=== PATIENT | female | born 1940 | race Caucasian/White ===

== ENCOUNTER 2025-03-26 19:59 | Observation (INO) | payer MEDICARE, SELFPAY ==
--- OUTSIDE RECORDS SUMMARY | 2020-04-17 09:10 | XMS_ITS | Continuity of Care Document ---
Author Organization [facility] Address [facility] [address] [place] [address] Phone Care Team Providers Care Cost Control Supervisor Name Role Phone Patricia Anderson MD Unavailable Unavailable Allergies, Adverse Reactions, Alerts Substance Reaction Status Criticality No Known Allergies Active No Inform ation Medications Medication Instructions Dosage Effective Dates (start - stop) Status Comments sertraline 25 mg tablet take 1 tablet by oral route every day 25 MG - Active atorvastatin 20 mg tablet take 1 tablet by oral route every day 20 MG - Active losartan 25 mg tablet take 1 tablet by o ral route every day 25 MG - Active Procedures Procedure Date Established Pt Comprehensive Exam Ophthalmoscopy; Optic Nerve Of Macula Au OCT Retina Unilateral Or Bilateral Established Pt Comprehensive Exam Subqunt Extended Ophthalmoscopy 019 Subqunt Extended Ophthalmoscopy 019 OCT Retina Unilateral Or Bilateral Established Pt Comprehensive Exam Subqunt Extended Ophthalmoscopy 018 Subqunt Extended Ophthalmoscopy 018 Fundus Photography Established Pt Comprehensive Exam Subqunt Extended Ophthalmoscopy 017 Fundus Photography New Patient Comprehensive Exam 17 Ophthalmoscopy Extended Initial 017 Ophthalmoscopy Extended Initial 017 Fluorescein Angiography Fundus Photography Advance Directives Directive Yes / No Effective Date File Name No Information Encounters Encounter Description Practice Location Reason(s) For Visit Diagnoses Date Provider Providers Copied on Encounter [facility], [facility] [id number] [place], [place], [id number], [place] tel: [phone] [facility] epi retinal membrane (chief complaint) Bilateral nonexudative age-related macular degeneration, early dry stagePuckering of macula, right eyeAge-related nuclear cataract, bilateral Apr- 7-202 0 Demsarah Gomez. [address], [place], [id number] , [place]. tel:[phone] Referring Provider: Melo Andersen [address], [place], [address] . tel:[phone] [address], [id number], [place] tel:[phone] [facility] macular degeneration (chief complaint) Bilateral nonexudative age-related macular degeneration, early dry stageBenign neoplasm of right choroidAge-rel ated nuclear cataract, bilateralPucke ring of macula, right eye 9- 9 Michaelasarah Mccurdyanne. [address], [place], [id number] , [place]. tel: [phone] Referring Provider: Melo Andersen [address], [place], [address] . tel:[phone] [facility] [address] [place] [address], [id number], [place] tel:[phone] [facility] macular degeneration (chief complaint) Puckering of macula, right eyeBilateral nonexudative age-related macular degeneration, early dry stageBenign neoplasm of right choroid Mar- 0-201 8 Michaelasarah Mccurdyanne. [address], [place], [id number] , [place]. tel:[phone] Referring Provider: Melo Andersen [address], [place], [address] . tel:[phone] [facility] [address] [place] [address], [id number], [place] tel:[phone] [facility] [place] epi retinal membrane (chief complaint) Vitreous degeneration, right eyePuckering of macula, right eyeBenign neoplasm of right choroidAge-rel ated nuclear cataract, bilateralNexdt ve age-related mclr degn, right eye, early dry stage Monica Gomez. [address], [place], [id number] , [place]. [phone] Referring Provider: David Laureano, [address], [place], [address] . tel:[phone] New Patient Comprehensive Exam [facility], [facility] [id number], [place], [id number], [place] tel:[phone] [facility] ERM (chief complaint) Puckering of macula, right eyeBenign neoplasm of right choroidVitreou s degeneration, right eyeAge-related nuclear cataract, bilateral Monica Gomez. [address], [place], [id number] , [place]. [phone] Specialist : Melo Andersen [facility] [address], [place], [address] . tel:[phone] erring Provider: Melo Andersen [facility] [address], [place], [address] . tel:[phone] Family History Family Member Type Diagnosis Age At Onset Mother Problem (finding) degenerative disorder o f macula Payers Payer name Insurance type Covered libertarian ID Authoriza tion(s) Medicare Part B MB [id number] [facility] Er PPO Supplement CI [id number] Social History Type Description Quantity Date Captured Comments Alcohol Use Details wine 1 drink daily Caffeine Use Details coffee Tobacco Use Status No Information Smoking Status Never smoker Sex Female Vital Signs Date / Time: Height Weight BMI Pulse Rate Blood Pressure Temperature Respiratory Rate Body Surface Area Head Circumference Head Circ. Percentile Wt./José Miguel. Percentile BMI percentile Pulse Ox Inhaled Ox 12:57 PM 97.80 F Chief Complaint And Reason For Visit From encounter dated '04/17/2020 13:10'. epi retinal membrane (chief complaint). Description: The 79 year old female presents for evaluationand management of epi retinal membrane in the right eye. The patient states that she doesn't think her vision has changed since her last exam. She says that she has an updated distance visioncontact lens in the left eye. No new floaters or flashes are reported today. Reason For Referral Reason For Referral No Information Plan Of Treatment Date Type Action Status Goal Tobacco cessation counseling completed Patient Education Age-Related Macular Deg eneration: Care completed Patient Education Dilated Retinal Exam: A bout This Test completed History Of Present Illness Encounter Date Complaint History Of Prese nt Illness epi retinal membrane The 79 year old female presents for evaluation and management of epi retinal membrane in the right eye. The patient states that she doesn't think her vision has changed since her last exam. She says that she has an updated distance vision contact lens in the left eye. No new floaters or flashes are reported today. macular degeneration The 78 year old female presents for evaluation of macular degeneration in the right eye and left eye. Patient states shes noticed a slight decrease in her vision about 2 months ago. She denies any flashes, floaters or distortion of vision. macular degeneration The 77 year old female presents for a one year follow up of macular degeneration in both eyes. Patient is also said to have a nevus OD and an epiretinal membrane OD. Patient states that her vision is stable from her last retina exam. Patient denies any new floaters, flashes or distortion. Patient would guess that she might need a slight change in her glasses prescription. Patient has no other complaints or questions for the doctor today. epi retinal membrane The 76 year old female presents for a six month follow up of an epi retinal membrane in the right eye. 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 Patient states that her vision is stable from her last retina exam. Patient states that her cataracts are not quite ready to come out per Dr. Gottlieb. Patient denies any new floaters or flashes. Patient has no other complaints for the doctor today. ERM The 76 year old female presents for evaluation and management of ERM in the right eye. Patient was referred from Dr. Gottlieb after a routine eye exam. Patient states she has distortion in OD,onset 4 or 5 months. Patient states she's had a lot of headaches lately. Patient denies any flashes or floaters OU today. Patient denies any pain OU today. Patient states OS is stable today. Patient doesn't have nay other complaints to discuss today. Functional Status Date Functional Assessmen t No Information Instructions Date Instruction Additional Infor mation Impression/Plan Related to Age-r elated nuclear cataract, bilateral Impression/Plan Related to Bilat eral nonexudative age-related macular degeneration, early dry stage Impression/Plan Related to Pucke ring of macula, right eye Return in 1 year wit akash Anderson MD for Dilated Exam , OCT (Macula) and Fundus Photos. Related to Puckering of macula, right eye Impression/Plan Related to Bilat eral nonexudative age-related macular degeneration, early dry stage Impression/Plan Related to Benig n neoplasm of right choroid Impression/Plan Related to Age-r elated nuclear cataract, bilateral Impression/Plan Related to Pucke ring of macula, right eye Return in 1 year wit akash Anderson MD for Dilated Exam , OCT (Macula) , Fundus Photos. choroidal nevus od too Related to Puckering of macula, right eye Impression/Plan - Di scussed and compared today's from previous visit . Stable. Flat . NO Change compared to last year. Reassured appears stable. Rediscussed will monitor closely for Malignant Melanoma. Discussed if changes, will suggest to be evaluated by a tumor specialist. Will monitor closely. Call if VA worsens Related to Benign neoplasm of right choroid Follow up - Return i n 1 year with Patricia Anderson MD for Dilated Exam , OCT (Macula) , Fundus Photos. choroidal nevus od too She is followed by Dr Gottlieb. Related to Puckering of macula, right eye Impression/Plan - ER M w/ mild pucker OD. Stable. Discussed if worsens, will consider surgical intervention. Not recommended at this current time. Will continue to observe condition and or symptoms. Call if VA worsens. ASRS patient education pamphlet given. Related to Puckering of macula, right eye Impression/Plan - Re viewed and discussed today's OCT and exam findings.Drusen and pigment changes.Discussed EARLY DRY AMD. Encouraged AREDS 2 and weekly monitoring of the Amsler Grid. Encouraged UV protection. Call VA if notes any changes in vision, or grid changes, due to the risk of DRY AMD changing to WET AMD. Call VA if changes. Will continue to monitor closely. Related to Bilateral nonexudative age-related macular degeneration, early dry stage Return in 1 year wit h Patricia Anderson MD for follow up exam , Fundus Photos , OCT (Macula). Related to Nexdtve age-related mclr degn, right eye, early dry stage Impression/Plan - No treatment is required at this time. Reassured patient of current condition and treatment. Will continue to observe condition and or symptoms. Discussed signs and symptoms of retinal detachment. Discussed signs and symptoms of PVD/floaters. Call if VA worsens. Use of Amsler grid was explained. Related to Vitreous degeneration, right eye Follow up - Return i n 1 year with Patricia Anderson MD for follow up exam , Fundus Photos , OCT (Macula). Related to Nexdtve age-related mclr degn, right eye, early dry stage Impression/Plan - Th ere are no contraindications, from a retina standpoint, why patient cannot move forward with cataract extraction when she and Dr Laureano choose to proceed. Related to Age-related nuclear cataract, bilateral Impression/Plan - No treatment is required at this time. Reassured patient of current condition and treatment. Use of vitamins has shown to improve the effects of ARMD. Call if VA worsens. Related to Nexdtve age-related mclr degn, right eye, early dry stage Impression/Plan - No treatment required at the present time. Patient will call with any questions or concerns. 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 Patient will monitor vision as well as Amsler grid and will call with any noticed changes. Related to Puckering of macula, right eye Return in 6 months w ith Patricia Anderson MD for follow up exam , OCT (Macula). Related to Puckering of macula, right eye Impression/Plan - Ne vus is 1 disc area in size. No treatment required at the present time. Patient will monitor vision and call with any changes. 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 No tears or breaks noted on exam today. Patient willmonitor vision for any onset of flashes, floaters, veils or curtains. She will call promptly with any noticed change. Related to Vitreous degeneration, right eye Follow up - Return i n 6 months with Patricia Anderson MD for follow up exam , OCT (Macula). Related to Puckering of macula, right eye Impression/Plan - Th e risks and benefits of TPPV, MBX, AFX were discussed and understood by patient. Discussed the worsening of the cataract after retinal surgery is performed. Patient should have her catartact removed prior to retinal surgery to allow the retina surgeon the best view into the posterior pole. She will monitor vision and Amsler grid at home. She will call with any noticed changes. Related to Puckering of macula, right eye Impression/Plan - Pa tient should have CE with Dr Gottlieb prior to any retinal surgery in the right eye. She will monitor and call with any changes. Related to Age-related nuclear cataract, bilateral Assessments Type Assessment Date assessment Bilateral nonexudati ve age-related macular degeneration, early dry stage assessment Puckering of macula, right eye A impression Bilateral nonexudati ve age-related macular degeneration, early dry stage: H35.3131 OU impression Puckering of macula, right eye: H35.371 OD assessment Age-related nuclear cataract, bi lateral impression Age-related nuclear cataract, bi lateral: H25.13 OU Patient Care Teams Name Effective Dates (start - stop) Status Members No Information
--- OUTSIDE RECORDS SUMMARY | 2025-02-15 08:55 | XMS_ITS | Continuity of Care Document ---
Author Organization [facility] Address [address] [address] [place] [address] Phone Care Team Providers Care Competitive Shopper Name Role Phone Alden Lopez M.D. Unavailable Unavailable Allergies, Adverse Reactions, Alerts Substance Reaction Status Criticality No Known Allergies Active No Inform ation Medications Medication Instructions Dosage Effective Dates (start - stop) Status Comments Tylenol Extra Strength 500 mg tablet take 2 tablet by oral route every 8 hours as needed - Active LOSARTAN POTASSIUM (unknown strength) Not Available - Active ATORVASTATIN CALCIUM (unknown strength) Not Available - Active SERTRALINE HCL (unknown strength) Not Available - Active Procedures Procedure Date POSTOP FOLLOW-UP VISIT X-RAY EXAM OF KNEE POSTOP FOLLOW-UP VISIT COMPUTER ASSIST SRGRY DARREN CT/MRI IMAG TOTAL KNEE REPLACEMENT THERAPEUTIC EXERCISES OV DETAILED, EST OV EXPANDED, EST X-RAY EXAM OF KNEE DRAIN/INJ JOINT/BURSA W/O US CELESTONE 12MG OFFICE/OUTPATIENT VISIT EST OV COMPREHENSIVE, NEW X-RAY Hip Unilateral W/pelvis 2-3 Views DRAIN/INJ JOINT/BURSA W/O US CELESTONE 6MG Advance Directives Directive Yes / No Effective Date File Name No Information Encounters Encounter Description Practice Location Reason(s) For Visit Diagnoses Date Provider Providers Copied on Encounter [facility] [address] [address], [place], [place], [id number], tel:[phone] JO Tong No Information John Patel [address] [facility] [facility] [address], [place], [place], [id number], . tel:[phone] [facility] [address] [address], [place], [place], [address], tel:[phone] JO Tong No Information John Patel [address] [place] [address], [facility] [address], [place], [place], [id number], . tel:[phone] Referring Provider: Alden Lopez, [address] [place] [address] [address], [place], [address]. tel:[phone] [facility] [address] [address], [place], [place], [address], tel:[phone] JO Tong No Information John Patel [facility] [facility] [address], [place], [address], . tel:[phone] Referring Provider: Alden Lopez, [address] [place] [address] [address], [place], [address]. tel:[phone] [facility] [address] [address], [place], [place], [id number], tel:[phone] JO Ran No Information John Patel [address] [place] [address], [facility] [address], [place], [id number], . tel:[phone] [facility] [address] [address], [place], [place], [address], tel:[phone] JO Ran Unilateral primary osteoarthriti s, left knee John Arshad. [address] [facility], [address], [place], [place], [address], [place]. tel:[phone] Referring Provider: Alden Lopez, [address] [facility] [address], [place], [address]. tel:[phone] [facility], [address] [address], [place], [place], [address], [place] tel:[phone] [facility] Kwaku Juan Antonio. [address] [facility], [address], [place], [place], [address]. tel:[phone] Referring Provider: Alden Lopez, [facility] [facility] [address], [place], [address]. tel:[phone] OV DETAILED, [facility], [address] [address], [place], [place], [id number], [place] tel:[phone] [facility] No Information John Patel [address] [facility], [address], [place], [place], [address], [place]. tel:[phone] Referring Provider: Alden Lopez, [address] [facility] [address], [place], [address]. tel:[phone] OV EXPANDED, EST [facility], [address] [address], [place], [place], [id number], [place] tel:[phone] [facility] No Information John Patel [address] [facility], [address], [place], [place], [address], [place]. tel:[phone] Referring Provider: Collin Loya, [address], [place], [address]. tel:[phone] OFFICE/OUTPATI ENT VISIT [facility], [address] [address], [place], [address], [place] tel:[phone] [facility] No Information John Patel [address] [facility], [address], [place], [place], [address], [place]. tel:[phone] Referring Provider: Alden Jeancarlos Lopez, [address] [facility] [address], [place], [address]. tel:[phone] [facility], [address] [address], [place], [place], [address], [place] tel:[phone] [facility] No Information John ArshadManuela [address] [facility], [address], [place], [place], [address], [place]. tel:[phone] Referring Provider: Collin Loya, [address], [place], [address]. tel:[phone] Family History Family Member Type Diagnosis Age At Onset No Information Payers Payer name Insurance type Covered alliance party ID Authoriza tion(s) [employer] Choice O Medicare [id number] Social History Type Description Quantity Date Captured Comments Sex Female Smoking Status No Information Chief Complaint And Reason For Visit No Information Reason For Referral Reason For Referral No Information History Of Present Illness Encounter Date Complaint History Of Prese nt Illness No Information Functional Status Date Functional Assessmen t No Information Instructions Date Instruction Additional Infor mation No Information Assessments Type Assessment Date No Information Patient Care Teams Name Effective Dates (start - stop) Status Members No Information
[2025-03-26] VITALS (10 sets, daily range): BP systolic 116–132; BP diastolic 45–67; PULSE 69–76; RESP 15–20; TEMP 36.4–36.6; O2SAT 93–97; BMI 24.3; BMI 24.7
--- NOTE | 2025-03-26 19:59 | CT_ITS ---
PROCEDURE INFORMATION: Exam: CT Thoracic Spine Without Contrast Exam date and time: 03/26/2025 8:44 PM Age: 84 years old Clinical indication: Injury or trauma; Fall; Additional info: Fall, pain TECHNIQUE: Imaging protocol: Computed tomography of the thoracic spine without contrast. Radiation optimization: All CT scans at this facility use at least one of these dose optimization techniques: automated exposure control; mA and/or kV adjustment per patient size (includes targeted exams where dose is matched to clinical indication); or iterative reconstruction. COMPARISON: CT THORACIC SPINE WO CON 03/26/2025 8:44 PM FINDINGS: Bones/joints: No acute fracture. Normal alignment. Multilevel degenerative disc and joint space changes. Vertebral body heights grossly preserved. Osteopenia. Soft tissues: Unremarkable. IMPRESSION: No acute thoracic spine findings identified.
--- NOTE | 2025-03-26 19:59 | CT_ITS ---
PROCEDURE INFORMATION: Exam: CT Cervical Spine Without Contrast Exam date and time: 03/26/2025 8:41 PM Age: 84 years old Clinical indication: Injury or trauma; Other: Fall, pain in RT hip TECHNIQUE: Imaging protocol: Computed tomography of the cervical spine without contrast. Radiation optimization: All CT scans at this facility use at least one of these dose optimization techniques: automated exposure control; mA and/or kV adjustment per patient size (includes targeted exams where dose is matched to clinical indication); or iterative reconstruction. COMPARISON: CT CERVICAL SPINE WO CON 03/26/2025 8:41 PM FINDINGS: Bones: No evident fracture. Degenerative changes of the C-spine most pronounced at C3-C4 through C6-C7. Otherwise unremarkable CT of the C-spine. Alignment and vertebral body heights are intact. Lungs: Bandlike nodular appearing density noted extending along the superomedial right upper lobe with associated calcifications. Largest nodular component measures 13 mm. Thyroid: Thyroid nodules noted largest measuring 24 mm in the right lobe and 19 mm in the left lobe. Advise further assessment with nonemergent ultrasound of thyroid. Soft tissues: Unremarkable. IMPRESSION: 1. Degenerative changes. No acute abnormality. 2. Opacity superomedial right upper lobe with bandlike and nodular components. The largest nodular portion measures up to 13 mm. I suspect this is scarring although developing nodule or mass not absolutely excluded. Advise further assessment with nonemergent chest CT with contrast. 3. Thyroid nodules noted largest measuring 24 mm in the right lobe and 19 mm in the left lobe. Advise further assessment with nonemergent ultrasound of thyroid. COMMENTS: Consistent with the [employer]'s Incidental Findings Committee white paper (J Am Pedrito Radiol 2015): In patients aged 35 years and older with an incidental thyroid nodule equal to or greater than 1.[address], MRI or extrathyroidal US, further evaluation with dedicated thyroid US is recommended for patients with normal life expectancy and without comorbidities. For smaller nodules without suspicious features, no further evaluation or follow up is recommended.
--- NOTE | 2025-03-26 19:59 | CT_ITS ---
PROCEDURE INFORMATION: Exam: CT Head Without Contrast Exam date and time: 03/26/2025 8:28 PM Age: 84 years old Clinical indication: Injury or trauma; Other: Fall, pain in RT hip TECHNIQUE: Imaging protocol: Computed tomography of the head without contrast. Radiation optimization: All CT scans at this facility use at least one of these dose optimization techniques: automated exposure control; mA and/or kV adjustment per patient size (includes targeted exams where dose is matched to clinical indication); or iterative reconstruction. COMPARISON: CT HEAD/BRAIN WO CON 03/26/2025 8:28 PM FINDINGS: Brain: No intracranial hemorrhage. Generalized atrophic changes of the ventricles and subarachnoid spaces. Chronic small-vessel ischemic changes noted. No mass, mass effect or midline shift. Intracranial atherosclerotic changes are noted. Cerebral ventricles: See Brain finding. Paranasal sinuses: Visualized sinuses are unremarkable. No fluid levels. Mastoid air cells: Visualized mastoid air cells are well aerated. Bones: Unremarkable. No acute fracture. Soft tissues: Unremarkable. IMPRESSION: No acute intracranial abnormality. Chronic changes as above.
--- NOTE | 2025-03-26 19:59 | CT_ITS ---
PROCEDURE INFORMATION: Exam: CT Pelvis Without Contrast, Skeleton Exam date and time: 03/26/2025 8:48 PM Age: 84 years old Clinical indication: Injury or trauma; Other: Fall, pain in RT hip TECHNIQUE: Imaging protocol: Computed tomography of the pelvis without contrast. Exam focused on the skeleton. Radiation optimization: All CT scans at this facility use at least one of these dose optimization techniques: automated exposure control; mA and/or kV adjustment per patient size (includes targeted exams where dose is matched to clinical indication); or iterative reconstruction. COMPARISON: CT LUMBAR SPINE WO CON 03/26/2025 8:46 PM FINDINGS: Intestine: Sigmoid colonic diverticula without pericolonic fat stranding. Atherosclerotic calcification of aortoiliac arteries. Nonobstructive pattern. Urinary bladder: Grossly unremarkable and intact. Bones/joints: Displaced, comminuted, right superior pubic ramus fracture. No diastasis. Mildly displaced, comminuted right mid inferior pubic ramus fracture. Soft tissues: Poorly defined fat stranding and fluid collection surrounding pubic rami fractures. IMPRESSION: 1. Right pubic rami fractures without diastasis. 2. Poorly defined hematoma collection surrounding pubic rami fractures. No definite urinary bladder injury identified.
--- NOTE | 2025-03-26 19:59 | CT_ITS ---
PROCEDURE INFORMATION: Exam: CT Lumbar Spine Without Contrast Exam date and time: 03/26/2025 8:46 PM Age: 84 years old Clinical indication: Injury or trauma; Fall; Additional info: Fall, pain TECHNIQUE: Imaging protocol: Computed tomography of the lumbar spine without contrast. Radiation optimization: All CT scans at this facility use at least one of these dose optimization techniques: automated exposure control; mA and/or kV adjustment per patient size (includes targeted exams where dose is matched to clinical indication); or iterative reconstruction. COMPARISON: CT THORACIC SPINE WO CON 03/26/2025 8:44 PM FINDINGS: Bones/joints: No acute fracture. Chronic L2 on L3 retrolisthesis. Chronic L4 on L5 anterolisthesis. Multilevel degenerative disc and joint space changes. Vertebral body heights grossly preserved. Osteopenia. Soft tissues: Unremarkable. IMPRESSION: No acute lumbar spine findings identified.
--- NOTE | 2025-03-26 19:59 | XR_ITS ---
PROCEDURE INFORMATION: Exam: XR Right Knee Exam date and time: 03/26/2025 8:52 PM Age: 84 years old Clinical indication: Injury or trauma; Fall; Other: Pain; Additional info: Fall, pain TECHNIQUE: Imaging protocol: Radiologic exam of the right knee. Views: 3 views. COMPARISON: CR XR FEMUR RT 2V 03/26/2025 8:52 PM FINDINGS: Bones/joints: No fracture. Normal alignment. Chondrocalcinosis. Moderate tricompartmental degenerative changes. No effusion. Soft tissues: Unremarkable. IMPRESSION: No acute findings.
--- NOTE | 2025-03-26 19:59 | XR_ITS ---
PROCEDURE INFORMATION: Exam: XR Right Femur Exam date and time: 03/26/2025 8:52 PM Age: 84 years old Clinical indication: Injury or trauma; Fall; Other: Pain; Additional info: Fall, pain TECHNIQUE: Imaging protocol: Radiologic exam of the right femur. Views: 2 views. COMPARISON: CR XR FEMUR RT 2V 03/26/2025 8:52 PM FINDINGS: Bones/joints: Displaced, comminuted right superior and inferior pubic rami fractures. No dislocation. Soft tissues: Grossly unremarkable. IMPRESSION: Right pubic rami fractures.
--- OUTSIDE RECORDS SUMMARY | 2025-03-26 20:15 | XMS_ITS | Patient Health Record ---
Author Organization Cardiology Physician alena [facility], [facility] Address [address] [place], [place] [id number] Care Team Providers Care Antique Furniture Restorer Name Role Phone ANASTASIIA RAMÍREZ Unavailable [phone] Reason For Referral No Information Medications Medication SIG (Take, Route, Frequency, Duration) Notes Start Date End Date Status Atorvastatin Calcium 10 MG Oral 10/29/2022 Active EYE VITAMIN AND MINERALS *Reorder from enosiX for eRx and Interaction Alerts* 10/29/2022 Active Losartan Potassium 50 MG Oral 10/29/2022 Active Aspirin Adult Low Strength 81 MG Oral 10/29/2022 Active Sertraline HCl 25 MG Oral 10/29/2022 Active Problems Problem Type SNOMED Code ICD Code Onset Dates Problem Status W/U Status Risk Notes Problem Angina pectoris (565445182) Angina pectoris, unspecified (I20.9) 04/19/20 22 Active confirmed Problem Heart disease (90829739) Heart disease, unspecified (I51.9) 10/12/19 22 Active confirmed Problem Dyspnea (711402882) Dyspnea, unspecified (R06.00) 10/12/19 22 Active confirmed Problem Dyspnea (383815745) Other forms of dyspnea (R06.09) 10/29/19 23 Active confirmed Problem Localized edema (7094815) Localized edema (R60.0) 10/29/19 23 Active confirmed Problem Normal body mass index (21373904) Body mass index (BMI) 24.0-24.9, adult (Z68.24) 10/29/19 23 Active confirmed Problem Aortic valve disorder (8407537) Nonrheumatic aortic (valve) stenosis (I35.0) 10/29/19 23 Active confirmed Problem Cardiomegaly (8000956) Cardiomegaly (I51.7) 10/12/19 22 Active confirmed Problem Mixed hyperlipidemia (067838382) Mixed hyperlipidemia (E78.2) 10/29/19 23 Active confirmed Problem Hypertensive heart disease without congestive heart failure (67410701) Hypertensive heart disease without heart failure (I11.9) 03/20/20 20 Active confirmed Problem Essential hypertension (71149143) Essential (primary) hypertension (I10) 10/29/19 23 Active confirmed Plan Of Treatment No Information Insurance Providers Payer Name Payer Address Payer Phone Subscriber Number Group Number Insured Name Patient Relationship to Insured Coverage Start Date Coverage End Date [employer] [address] [address] [place], [place] [id number] EDGARDO CHANEY Self - patient is the insured Medical (General) History Surgical History Surgery Date(Month/Year) Cholecystectomy (82088760) Revision of breast implant (32908964) Tonsillectomy (705730337) Hysterectomy Lumpectomy of breast (123866632) RIGHT B REAST 09/01/1999 Colonoscopy (76077122) 08/05/2018
--- OUTSIDE RECORDS SUMMARY | 2025-03-26 20:15 | XMS_ITS | Encounter Summary ---
Author Organization [facility] Address [address] [place] [address] Care Team Providers Care Tentmaker Name Role Phone Alden Reno MD Primary Care Provide r Alden Reno MD Unavailable Source Comments Please be aware that You and/or your organization are solely responsible for the use, security, privacy, and any decisions made with any information you receive from [employer] Reason for Visit * Reason Comments Med Refill Encounter Details Date Type Department Care Team (Late st Contact Info) Description 09/07/2023 Refill [facility] Well 65+ at [place] [address] [place] [address] Alden Reno MD [address] [place] [address] Essential hypertension Social History Tobacco Use Types Packs/Day Years Used Date Smoking Tobacco: Never Smokeless Tobacco: Never Alcohol Use Standard Drinks/Week Comments Yes 2 (1 standard drink = 0.6 oz pur e alcohol) AUDIT-C Answer Date Recorded Q1: How often do you have a drink containing alcohol? Never 10/31/2022 Q2: How many drinks containi ng alcohol do you have on a typical day when you are drinking? Patient does not drink Q3: How often do you have si x or more drinks on one occasion? Never 10/31/2022 PHQ-2 Answer Date Recorded Patient Health Questionnaire-2 Score 0 10/31/2022 Comments Unknown Sex and Gender Information Value Date Recorded Sex Assigned at Not on file Legal Sex Female 10:47 PM EDT Gender Identity Not on file Sexual Orientation Not on file documented as of this encounter Plan of Treatment Not on file documented as of this encounter Visit Diagnoses Diagnosis Essential hypertension Unspecified essential hypertension documented in this encounter Additional Health Concerns Assessment Noted Time A fall risk assessment has been complete d for the patient 10/31/2022 3:26 PM EST documented as of this encounter Care Teams Tentmaker Relationship Specialty Start Date End Date Alden Reno MD PCP - General Family Medicine 04/10/22 Alden Reno MD W65+ Responsible Provider Family Medicine 07/02/2407/02/24 documented as of this encounter
--- OUTSIDE RECORDS SUMMARY | 2025-03-26 20:15 | XMS_ITS | Clinical Summary ---
Author Organization [employer] ([place], [place], [place], [place]) Address [address] [place] [address] Care Team Providers Care Greaser And Oiler Name Role Phone Unavailable Primary Care Provider Unavailabl e Allergies No known active allergies Medications No known medications Social History Tobacco Use Types Packs/Day Years Used Date Smoking Tobacco: Never Smokeless Tobacco: Never Tobacco Cessation:Counseling Given: Not Answered Alcohol Use Standard Drinks/Week Comments Yes 0 (1 standard drink = 0.6 oz pur e alcohol) social Food Insecurity Answer Date Recorded Food run out past 12 months Not on file 09/02 Food did not last past 12 months Not on file 09/20/2023 Employment Answer Date Recorded Help finding and keeping a job Not on file 0 09/20/2023 Family and Community Support Answer Kyle e Recorded Help with Day to Day Activities Not on file 09/20/2023 Feeling Lonely or Isolated Not on file 09/20 Educational Attainment Answer Date Radhames rded Speak language other than Iranian at home Not on file 09/20/2023 Want help with school or training Not on file 09/20/2023 Substance Use Answer Date Recorded Used prescription meds for non-medical reasons N ot on file 09/20/2023 Used illegal drugs past 12 months Not on file 09/20/2023 Comments Unknown Sex and Gender Information Value Date Recorded Sex Assigned at Not on file Legal Sex Female 9:48 AM CDT Gender Identity Not on file Sexual Orientation Not on file Last Filed Vital Signs Vital Sign Reading Time Taken Comments Blood Pressure 162/68 04/05/2023 2:03 PM EDT Pulse 73 04/05/2023 2:03 PM EDT Temperature 36.6 C (97.9 F) 04/05/2023 2:03 PM EDT Respiratory Rate 18 04/05/2023 2:03 PM EDT Oxygen Saturation 94% 04/05/2023 2:03 PM EDT Inhaled Oxygen Concentration - - Weight 63.5 kg (140 lb) 04/05/2023 11:18 AM EDT Height 162.6 cm (5' 4 ) 04/05/2023 11:18 AM EDT Body Mass Index 24.03 04/05/2023 11:18 AM EDT Plan of Treatment Health Maintenance Due Date Last Done Comments DXA SCAN 1940 Depression Screening (12+) 1952 DTAP/TDAP/TD VACCINES (1 - Tdap) 1959 Shingles Vaccine (Zoster) (2 of 2) 04/13/20142013 Respiratory Syncytial Virus (RSV) Adult or (1 - 1-dose 75+ series) 2015 Pneumococcal 50+ years (2 of 2 - PPSV23) 06/02/2020 06/02/2019 Medicare Initial AWV [id number] 10/03/2022 Tobacco Cessation Counseling and Screening (12+) 04/05/2024 04/05/2023 COVID-19 VACCINE (5 - 2023-2 5 season) 2024 07/13/2021, 10/26/2020, 09/28/2020, Additional history exists Falls Risk Screening 09/01/2024 Influenza Vaccine (#1) 2025 , 06/26/2020, 05/02/2020, Additional history exists Insurance [facility] MEDICARE PPO
--- OUTSIDE RECORDS SUMMARY | 2025-03-26 20:15 | XMS_ITS | Encounter Summary ---
Author Organization [facility] Address [address] [place] [address] Care Team Providers Care Pharmacy Sales Assistant Name Role Phone Alden Reno MD Primary Care Provide r Alden Reno MD Unavailable Source Comments Please be aware that You and/or your organization are solely responsible for the use, security, privacy, and any decisions made with any information you receive from [employer] Reason for Visit * Reason Comments Med Refill Encounter Details Date Type Department Care Team (Late st Contact Info) Description 05/05/2023 Refill [facility] Well 65+ at [place] [address] [place] [address] Alden Reno MD [address] [place] [address] Seasonal allergic rhinitis, unspecified trigger Social History Tobacco Use Types Packs/Day Years [...] as of this encounter Visit Diagnoses Diagnosis Seasonal allergic rhinitis, unspecified trigger documented in this encounter Additional Health Concerns Assessment Noted Time A fall risk assessment has been complete d for the patient 10/31/2022 3:26 PM EST documented as of this encounter Care Teams Pharmacy Sales Assistant Relationship Specialty Start Date End Date Alden Reno MD PCP - General Family Medicine 04/10/22 Alden Reno MD W65+ Responsible Provider Family Medicine 07/02/2407/02/24 documented as of this encounter
--- OUTSIDE RECORDS SUMMARY | 2025-03-26 20:15 | XMS_ITS | Patient Health Record ---
Author Organization [facility] Address [address] [place], [place] [address] Care Team Providers Care Radio Performer Name Role Phone FADIA JOHN Primary Care Provider Unavail able MAY MINOR Unavailable [phone] Reason For Referral No Information Medications Medication SIG (Take, Route, Frequency, Duration) Notes Start Date End Date Status Tylenol 650 mg 2 tablet as needed O rally Twice a day Active Calcium + D 1200 mg 1 tablet with meals Orally Once a day Active Multi Complete Orally Activ e Losartan Potassium 25 MG 1 tablet Orally Once a day Active Atorvastatin Calcium 20 MG 1 tablet Oral ly Once a day for 90 days Active Aspirin 81 MG 1 tablet Orally Once a day Active Prolia 60 MG/ML Subcutaneous A ctive Zoloft 25 MG 1/2 tablet Orally On ce a day Active Problems Problem Type SNOMED Code ICD Code Onset Dates Problem Status W/U Status Risk Notes Problem Hypertension (89037926) Hypertension (I10) Active confirmed Problem Hyperlipidemia (01060354) Hyperlipidemia (E78.5) Active confirmed Problem Atypical chest pain (734730770) Atypical chest pain (R07.89) Active confirmed Plan Of Treatment Pending Test Test Name Order Date EKG (Electrocardiogram) 11/03/2015 EKG (Electrocardiogram) 11/14/2015 Future Test Test Name Order Date PET Scan 11/10/2015 Insurance Providers Payer Name Payer Address Payer Phone Subscriber Number Group Number Insured Name Patient Relationship to Insured Coverage Start Date Coverage End Date MEDICARE [address] [address] [place] [address] [id number] Marlin Moreira Self - patient is the insured 6 BLUE CROSS [address] [place] [address] [id number] Marlin Moreira Self - patient is the insured Medical (General) History Medical History History ICD Code Atypical chest pain Hypertension Hyperlipidemia Surgical History Surgery Date(Month/Year) Cholecystectomy 1991 Hysterectomy 1987 Breast Cancer Lumpectomy/Lymph Nodectomy 1999
--- OUTSIDE RECORDS SUMMARY | 2025-03-26 20:15 | XMS_ITS | Referral Summary ---
Author Organization [employer] ([place], [place], [place], [place]) Address [address] [address] Care Team Providers Care Drafter (Cad) Electronic Name Role Phone Unavailable Primary Care Provider [...] Date Radhames rded Speak language other than Taiwanese at home Not on file 09/20/2023 Want [...] 04/05/2023 11:18 AM EDT Plan of Treatment Not on file Insurance [employer] MEDICARE PPO
--- OUTSIDE RECORDS SUMMARY | 2025-03-26 20:15 | XMS_ITS | Encounter Summary ---
Author Organization [facility] Address [address] [place], [place] [address] Care Team Providers Care Household Appliance Assembler Name Role Phone Alden Reno MD Unavailable [phone] Alden Reno MD Primary Care Provide r Alden Reno MD Unavailable Source Comments Please be aware that You and/or your organization are solely responsible for the use, security, privacy, and any decisions made with any information you receive from [employer] Encounter Details Date Type Department Care Team (Late st Contact Info) Description 01/18/2022 Patient Outreach [facility] Well 65+ at [address] [place] [address] Alden Reno MD [address] [place] [address] Social History Tobacco Use Types Packs/Day Years Used Date Smoking Tobacco: Never Assessed Comments Unknown Sex and Gender Information Value Date Recorded Sex Assigned at Not on file Legal Sex Female 10:47 PM EDT Gender Identity Not on file Sexual Orientation Not on file documented as of this encounter Plan of Treatment Not on file documented as of this encounter Visit Diagnoses Not on filedocumented in this encounter Care Teams Household Appliance Assembler Relationship Specialty Start Date End Date Alden Reno MD [address] [place] [address] PCP - [employer] MA Attributed Provider 12/30/21 05/01/23 Alden Reno MD [address] [place] [address] PCP - General Family Medicine 04/10/22 Alden Reno MD [address] [place] [address] W65+ Responsible Provider Family Medicine 07/02/2407/02/24 documented as of this encounter
--- OUTSIDE RECORDS SUMMARY | 2025-03-26 20:15 | XMS_ITS | Clinical Summary ---
Author Organization [facility] Address [address] [place] [address] Care Team Providers Care Treating Plant Supervisor Name Role Phone Alden Reno MD Primary Care Provide r Allergies No known active allergies Medications Calcium Carb-Cholecalcifero l (CALCIUM 600/VITAMIN D3 PO) Take by mouth. Active naproxen sodium (Aleve) 220 MG tablet Take 220 mg by mouth in the morning and 220 mg in the evening. Take with meals. Active atorvastatin (Lipitor) 10 MG tabletIndications:M edication refill Take 1 tablet (10 mg total) by mouth every night. 90 tablet 3 3 Active aspirin 81 MG EC tablet Take 81 mg by mouth 1 (one) time each day. Active predniSONE (Deltasone) 10 MG tabletIndications:A cute pain of left knee,Primary osteoarthritis of left knee Take 4 tabs PO Q daily for 4 days then 3 daily for 3 days then 2 daily for 2 days then 1 daily for 1 day and stop 30 tablet 3 Active losartan (Cozaar) 50 MG tabletIndications:E ssential hypertension Take 1 tablet (50 mg total) by mouth 1 (one) time each day. 90 tablet 1 3 Active sertraline (Zoloft) 50 MG tabletIndications:M ild recurrent major depression (HCC) TAKE 1.5 TABLETS BY MOUTH 1 TIME EACH DAY. 135 tablet 3 Active fluticasone (Flonase) 50 MCG/ACT nasal sprayIndications:Se asonal allergic rhinitis, unspecified trigger INSTILL 1 SPRAY INTO EACH NOSTRIL 1 TIME PER DAY. SHAKE GENTLY. AFTER USE, CLEAN TIP AND REPLACE CAP 48 mL 3 Active Active Problems Problem Noted Date Diagnosed Date Aortic valve stenosis 04/19/2022 Angina pectoris 04/19/2022 Dyspnea on exertion 10/04/2018 Edema of lower extremity 10/04/2018 Essential hypertension 10/04/2018 Mixed anxiety and depressive disorder 10/04/2018 Mixed hyperlipidemia 10/04/2018 Immunizations Immunization Administration Dates Next Due Influenza Vaccine, Quadrival ent, Adjuvanted 06/07/2022,08/15/2021 Influenza, High Dose Seasona l, Preservative Free 06/02/2019,06/10/2018,07/09/2017,2015,05/29/2014,09/10/2012 Influenza, injectable, quadrivalent 09/2020,06/26/2020,06/01/2019,2018 Influenza, seasonal, injectable 06/16/20 19,06/05/2018,07/14/2015,2013,07/19/2007 Influenza, seasonal, injecta ble, preservative free 05/02/2020 Moderna Sars-cov-2 Vaccinati on Abbr...: Moderna Sars* 07/13/2021,10/26/2020,09/28/2020 Pneumococcal Conjugate PCV 13 06/02/2019 Pneumococcal, Unspecified 05/02/2019 Sars-cov-2, Unspecified 09/28/2020 Zoster, Unspecified (INACTIV E 06/27/2017 HISTORICAL ONLY) 02/06/2014 Zoster, live 02/16/2014 Family History Medical History Relation Name Comments Arthritis Father Heart disease Father Obesity Father diabetes mellitus Father diabetes mellitus Maternal Grandfather malignant tumor of lung Maternal Grandfather Asthma Mother diabetes mellitus Mother Heart disease Paternal Grandmother Relation Name Status Comments Father Maternal Grandfather Mother Paternal Grandmother Social History Tobacco Use Types Packs/Day Years [...] Sign Reading Time Taken Comments Blood Pressure 138/58 01/07/2023 9:04 AM EDT Pulse 75 01/07/2023 9:04 AM EDT Temperature 36.7 C (98 F) 01/07/2023 9:04 AM EDT Respiratory Rate 16 01/07/2023 9:04 AM EDT Oxygen Saturation 98% 01/07/2023 9:04 AM EDT Inhaled Oxygen Concentration - - Weight 64.4 kg (142 lb) 01/07/2023 9:04 AM EDT Height 160 cm (5' 3 ) 01/07/2023 9:04 AM EDT Body Mass Index 25.15 01/07/2023 9:04 AM EDT Plan of Treatment Health Maintenance Due Date Last Done Comments Advance Care Planning 1940 DTaP/Tdap/Td Vaccines (1 - Tdap) 1959 Zoster Vaccines (1 of 2) 04/13/2014 02/16/2014, 04/2014 Respiratory Syncytial Virus (RSV) 60 years and older and/or patients (1 - 1-dose 75+ series) 2015 Pneumococcal Vaccine: 50+ Years (2 of 2 - PPSV23) 07/28/2019 06/02/2019, 05/02/2019 Depression Screening 11/01/2023 10/31/2022 Medicare Annual Wellness (AWV) 11/02/2023 11/01/2022, 10/16/2020, 10/12/2019 COVID-19 Vaccine ( season) 2024 06/07/2022, 08/01/2021, 07/13/2021, Additional history exists Influenza Vaccine (#1) 2025 , 08/15/2021, 08/01/2021, Additional history exists Lipid Panel 04/23/2027 04/23/2022, 04/01, 04/12/2021, Additional history exists Bone Density Scan Completed 11/30/2020, , 10/18/2016, Additional history exists HPV Vaccines Aged Out No longer eligi ble based on patient's age to complete this topic Hepatitis A Vaccines Aged Out No long er eligible based on patient's age to complete this topic Hepatitis B Vaccines Aged Out No long er eligible based on patient's age to complete this topic Meningococcal B Vaccine Aged Out No l onger eligible based on patient's age to complete this topic Meningococcal Vaccine Aged Out No kyler hardeep eligible based on patient's age to complete this topic Respiratory Syncytial Virus (RSV) <20 months Aged Out No longer eligible based on patient's age to complete this topic Procedures Procedure Name Priority Date/Time Associated Diagnosis Comments LIPID PANEL Routine 04/23/2022 10:02 AM EDT from Last 3 Months or Most Recently Relevant to Health Maintenance Results * Lipid Panel (04/23/2022 10:02 AM EDT) Cholesterol, Total 146 100 - 199 mg/dL [facility] ([facility]) ([facility]) Triglycerides 78 0 - 149 mg/dL [facility] ([facility] ([facility]) HDL Cholesterol 71 >39 mg/dL [facility] ([facility] ([facility]) VLDL, Calculated 15 5 - 40 mg/dL [facility] ([facility]) ([facility]) LDL Cholesterol, Calc 60 0 - 99 mg/dL [facility] ([facility]) ([facility]) 04/23/2022 10:0 2 AM EDT 04/23/2022 Narrative [facility] - 04/24/2022 3:07 AM EDT Performed at: 01 - [facility] [address] [id number] [employer] Supervisor: Sky Smith MD, Phone: [phone] us Alden Reno MD LAB BLOOD ORDERABLES Final Result [facility] ([facility] ([facility]) from Last 3 Months or Most Recently Relevant to Health Maintenance Insurance [employer] MEDICARE Care Teams Treating Plant Supervisor Relationship Specialty Start Date End Date Alden Reno MD PCP - General Family Medicine 04/10/22
--- OUTSIDE RECORDS SUMMARY | 2025-03-26 20:15 | XMS_ITS | Encounter Summary ---
Author Organization [facility] Address [address] [place] [address] Care Team Providers Care Maitre D' Name Role Phone Alden Reno MD Unavailable Alden Reno MD Primary Care Provide r Alden Reno MD Unavailable Source Comments Please be aware that You and/or your organization are solely responsible for the use, security, privacy, and any decisions made with any information you receive from [employer] Encounter Details Date Type Department Care Team (Latest Contact Info) Description 11/01/2021 Quality Abstraction Social History Tobacco Use Types Packs/Day Years [...] on filedocumented in this encounter Care Teams Maitre D' Relationship Specialty Start Date End Date Alden Reno MD [address] [place] [address] PCP - Omaira LAWRENCE Attributed Provider 12/30/21 05/01/23 Alden Reno MD [address] [place] [address] PCP - General Family Medicine 04/10/22 Alden Reno MD [address] [place] [id number] W99+ Responsible Provider Family Medicine 07/02/2407/02/24 documented as of this encounter
--- OUTSIDE RECORDS SUMMARY | 2025-03-26 20:15 | XMS_ITS | Encounter Summary ---
Author Organization [facility] Address [address] [place] [address] Care Team Providers Care Nuclear Spectroscopist Name Role Phone Alden Reno MD Primary Care Provide r Alden Reno MD Unavailable Source Comments Please be aware that You and/or your organization are solely responsible for the use, security, privacy, and any decisions made with any information you receive from [employer] Reason for Visit * Reason Comments Med Refill Encounter Details Date Type Department Care Team (Late st Contact Info) Description 08/02/2023 Refill [facility] Well 65+ at [place] [address] [place] [address] Alden Reno MD [address] [place] [address] Essential hypertension Social History Tobacco [...] on file documented as of this encounter Miscellaneous Notes * Telephone Encounter - Ingrid Choudhary LPN - 08/05/2023 8:23 AM EST Spoke to patient and she has new PCP in [place] * Telephone Encounter - Ingrid Choudhary LPN - 08/04/2023 8:27 AM EST Left message to call. documented in this encounter Plan of Treatment Not on file documented as of this encounter Visit Diagnoses Diagnosis Essential hypertension Unspecified essential hypertension documented in this encounter Additional Health Concerns Assessment Noted Time A fall risk assessment has been complete d for the patient 10/31/2022 3:26 PM EST documented as of this encounter Care Teams Nuclear Spectroscopist Relationship Specialty Start Date End Date Alden Reno MD PCP - General Family Medicine 04/10/22 Alden Reno MD W65+ Responsible Provider Family Medicine 07/02/2407/02/24 documented as of this encounter
--- OUTSIDE RECORDS SUMMARY | 2025-03-26 20:15 | XMS_ITS | Encounter Summary ---
Author Organization [facility] Address [address] [place] [address] Care Team Providers Care Train Conductor Name Role Phone Alden Reno MD Primary Care Provide r Alden Reno MD Unavailable Source Comments Please be aware that You and/or your organization are solely responsible for the use, security, privacy, and any decisions made with any information you receive from [employer] Reason for Visit * Reason Comments Med Refill Encounter Details Date Type Department Care Team (Late st Contact Info) Description 02/02/2024 Refill [facility] Well 65+ at [place] [address] [place] [address] Alden Reno MD [address] [place] [address] Seasonal allergic rhinitis, unspecified trigger [...] documented as of this encounter Care Teams Train Conductor Relationship Specialty Start Date End Date Alden Reno MD PCP - General Family Medicine 04/10/22 Alden Reno MD W65+ Responsible Provider Family Medicine 07/02/2407/02/24 documented as of this encounter
--- OUTSIDE RECORDS SUMMARY | 2025-03-26 20:16 | XMS_ITS | Encounter Summary ---
Author Organization [facility] Address [address] [place] [id number] Care Team Providers Care Art Handler Name Role Phone Alden Reno MD Unavailable Alden Reno MD Primary Care Provide r Alden Reno MD Unavailable Source Comments Please be aware that You and/or your organization are solely responsible for the use, security, privacy, and any decisions made with any information you receive from [employer] Reason for Visit * Reason Comments Med Refill Encounter Details Date Type Department Care Team (Late st Contact Info) Description 08/14/2022 Refill [facility] Well 65+ at [address] [place] [address] [place] [address] Christiano Shultz MD [address] [place] [address] Mild recurrent major depression (HCC) Social History Tobacco Use Types Packs/Day Years Used Date Smoking Tobacco: Never Smokeless Tobacco: Never Alcohol Use Standard Drinks/Week Comments Yes 2 (1 standard drink = 0.6 oz pur e alcohol) AUDIT-C Answer Date Recorded Q1: How often do you have a drink containing alc ohol? 2-3 times a week 04/22/2022 Q2: How many drinks containi ng alcohol do you have on a typical day when you are drinking? 1 or 2 04/22/2022 Q3: How often do you have si x or more drinks on one occasion? Weekly 04/22/2022 Comments Unknown Sex and Gender Information Value Date Recorded Sex Assigned at Not on file Legal Sex Female 10:47 PM EDT Gender Identity Not on file Sexual Orientation Not on file COVID-19 Exposure Response Date Recorded In the last 10 days, have yo u been in contact with someone who was confirmed or suspected to have Coronavirus/COVID-19? 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
[2025-03-26] MEDS: MORPHINE 4MG/ML SYRINGE 4 MG IV (20:17)
[2025-03-26] MEDS: ONDANSETRON 4MG/2ML VIAL 4 MG IV (20:17)
[2025-03-26] MEDS: TET/DIPHTH/PERT-ADULT 0.5ML SYRINGE 0.5 ML IM (20:18)
[2025-03-26 20:22] LABS: Chloride 105 mmol/L (98-107)
[2025-03-26 20:23] LABS: Albumin Level 3.9 g/dl (3.5-5.0); Potassium 4.1 mmoL/L (3.5-5.1); Sodium 135 mmol/L (136-145)
[2025-03-26 20:25] LABS: Anion Gap 9.1 mEq/L (5-15); Blood Urea Nitrogen 24 mg/dl (7-17); Carbon Dioxide 25 mmol/L (22.0-30.0); Creatinine Clearance Estimated 43 mL/min (50-200); Creatinine,Serum 0.70 mg/dl (0.52-1.04); Estimated Glomerular Filt Rate 80 ml/min (>60); GFR (African American) 96 ML/MIN (>60)
[2025-03-26 20:26] LABS: Alanine Aminotransferase 23 U/L (12-78); Albumin/Globulin Ratio 1.4 (1.1-1.8); Alkaline Phosphatase 160 U/L (38-126); Aspartate Amino Transferase 30 U/L (14-36); Bilirubin,Total 0.3 mg/dl (0.2-1.3); Calcium 9.3 mg/dl (8.4-10.2); Globulin 2.7 g/dL (1.3-3.2); Glucose 161 mg/dl (74-100); Total Protein,Serum 6.6 g/dl (6.3-8.2)
[2025-03-26 20:34] LABS: Hematocrit 42.0 % (37.0-47.0); Hemoglobin 13.6 g/dL (12.2-16.2); Immature Granulocytes % 1.0 %; Mean Corpuscular HGB Conc 32.4 g/dL (31.8-35.4); Mean Corpuscular Hemoglobin 27.1 pg (27.0-31.2); Mean Corpuscular Volume 83.8 fl (81-99); Nucleated Red Blood Cells % 0 %; Platelet Count 254 K/mm3 (142-424); Red Blood Count 5.01 M/mm3 (4.20-5.40); Red Cell Distribution Width-SD 42.0 fL; White Blood Count 8.8 K/mm3 (4.8-10.8)
[2025-03-26 21:11] LABS: Activated Partial Thrombo Time 23.4 seconds (22.8-30.6); INR 1.02 (0.9-1.1); Prothrombin Time 11.3 seconds (10.1-12.5)
--- NOTE | 2025-03-26 21:45 | HMH.EDGENADL ---
Discharge Plan Disposition Patient Disposition: Admitted Condition: Good Prescriptions Prescriptions: No Action losartan 50 mg tablet 50 mg PO DAILY Patient Comments: TAKE 1 TABLET BY MOUTH EVERY DAY atorvastatin 10 mg tablet 10 mg PO HS Patient Comments: TAKE 1 TABLET BY MOUTH EVERY DAY aspirin 81 mg tablet,delayed release (DR/EC) 81 mg PO BID Patient Comments: 1 TAB ORAL TWICE A DAY ,INSTR:DVT PROPHYLAXIS fluticasone propionate 50 mcg/actuation spray,suspension 1 spray INTRANASAL BID Patient Comments: SPRAY 1 SPRAY INTO EACH NOSTRIL TWICE A DAY sertraline 50 mg tablet 50 mg PO BID Patient Comments: TAKE 1 TABLET BY MOUTH IN THE MORNING AND 1 TABLET IN THE EVENING DAILY Referrals Follow up/Referrals: Provider,Referral, MD [Primary Care Provider, Medical] - See instructions Clinical Impressions Clinical Impression: Fall, Skin tear of forearm without complication, Thyroid nodule, Lung nodule, Fracture of right superior pubic ramus, Fracture of right inferior pubic ramus, Pelvic hematoma Print Language Print Language: Maltese Discharge ED Provider: Vaishali Castellanos General Adult HPI General Chief complaint: Extremity Injury, Lower Stated complaint: Fall Time Seen by Provider: 03/26/25 19:59 Mode of Arrival: EMS Source of Information: Patient and EMS Description of Symptoms (Recalled from ER Triage Doc. by RN): Was playing with a dog, got knocked down, now right hip pain. Right leg short and rotated out. +PMS 50 mcg fentanyl by EMS enroute. History of Present Illness HPI narrative: This patient is a 84-year-old female with a history of hypertension and hyperlipidemia presenting to the emergency department for evaluation with concern for fall with right hip pain. Patient reports that she was playing with her dog when she got knocked down, landed on her right hip. EMS noted concern for deformity with a shortened and rotated right lower extremity. Patient received 50 mcg of fentanyl with them prior to arrival. Aside from right hip pain, she does note some mild neck pain that is only started since arrival. Notes some minor skin tears from her dog running over to her and jumping on her, but she denies any other concerns or complaints. She states she did hit her head but did not lose consciousness. She denies any numbness or tingling reports she was well prior to this. She has not been ambulatory since. This happened just prior to arrival Related Data Home Medications ?Medication ?Instructions ?Recorded ?Confirmed aspirin 81 mg tablet,delayed 81 mg PO BID 03/26/25 03/26/25 release atorvastatin 10 mg tablet 10 mg PO HS 03/26/25 03/26/25 fluticasone propionate 50 1 spray intranasal BID 03/26/25 03/26/25 mcg/actuation nasal spray,suspension losartan 50 mg tablet 50 mg PO DAILY 03/26/25 03/26/25 sertraline 50 mg tablet 50 mg PO BID 03/26/25 03/26/25 Allergies Allergy/AdvReac Type Severity Reaction Status Date / Time No Known Allergies Allergy Verified 03/26/25 20:03 [facility] Disclaimer: The information contained in this section may have been updated after the patient was seen, as this information can be updated by other users. Medical History Hypertension Depression Surgical History History of knee replacement Social History Smoking Status: Never smoker alcohol intake: never current occupational status: retired Travel in the last 8 weeks?: None ROS Obtained: Yes All systems reviewed & no additional complaints except as documented Physical Exam General General appearance: alert and in no apparent distress Head Head exam: atraumatic and normocephalic Eye Eye exam: Present normal appearance, PERRL and EOMI ENT ENT exam: Present normal exam, normal oropharynx, mucous membranes moist and normal external ear exam Neck Neck exam: Present normal inspection, full ROM and trachea midline; Absent tenderness Chest Chest inspection: Present normal inspection and symmetric chest wall rise; Absent tenderness Respiratory Respiratory exam: Present normal lung sounds bilaterally; Absent respiratory distress, wheezes, stridor or accessory muscle use Cardiovascular Cardiovascular exam: Present regular rate and normal rhythm Abdominal Exam Abdominal exam: Present soft; Absent distention, tenderness or guarding Extremities Exam Extremities exam: Present tenderness (Proximal right hip with limited range of motion secondary to pain), normal capillary refill and other (All compartments soft, neurovascular intact distally. Minor skin tears to the bilateral forearms with no large deep lacerations.); Absent edema Back Exam Back exam: Present normal inspection and full ROM; Absent tenderness Neurological Exam Neurological exam: Present alert, oriented X3, CN II-XII intact and normal gait; Absent motor sensory deficit Psychiatric Psychiatric exam: Present normal affect and normal mood Skin Skin exam: Present warm and dry Medical Decision Making Medical Records Medical records reviewed: Yes I reviewed the patient's medical records. Screening: Per USPSTF and CDC recommendations, given the prevalence of disease in our region, it is our hospital?s policy to screen for HIV and viral Hepatitis for all patients aged 18 and over and those with ongoing risk factors. Berny Inquiry Pt receiving controlled substance: No Vital Signs: 03/26/25 19:58 03/26/25 20:05 03/26/25 21:18 Temperature 98 F Temperature Source Oral Pulse Rate 76 Pulse Rate [Radial] 71 Pulse Rate [Right Dorsalis Pedis] 71 Pulse Rate [Right Posterior Tibial] 71 Respiratory Rate 18 16 Blood Pressure 122/50 L Blood Pressure [Left Arm] 129/67 Blood Pressure Mean 85 Blood Pressure Mean [Left Arm] 87 Blood Pressure Source [Left Arm] Automatic Cuff Blood Pressure Position [Left Arm] Supine 02 Sat by Pulse Oximetry 95 93 L Oxygen Delivery Method Room Air Nasal Cannula Oxygen Flow Rate (LPM) 2 03/26/25 21:30 03/26/25 22:00 03/26/25 22:30 Temperature Temperature Source Pulse Rate 71 75 73 Pulse Rate [Radial] Pulse Rate [Right Dorsalis Pedis] Pulse Rate [Right Posterior Tibial] Respiratory Rate 15 18 19 Blood Pressure 116/45 L 128/54 L 132/53 L Blood Pressure [Left Arm] Blood Pressure Mean 68 72 Blood Pressure Mean [Left Arm] Blood Pressure Source [Left Arm] Blood Pressure Position [Left Arm] 02 Sat by Pulse Oximetry 95 97 97 Oxygen Delivery Method Oxygen Flow Rate (LPM) 2 Lab Data Lab results reviewed: Yes I reviewed the patient's lab results. Lab Results 03/26/25 19:57: WBC 8.8, RBC 5.01, Hgb 13.6, Hct 42.0, MCV 83.8, MCH 27.1, MCHC 32.4, RDW 13.8, Plt Count 254, MPV 9.8, Neut % (Auto) 72.2, Lymph % (Auto) 15.8, [place] % (Auto) 8.6, Eos % (Auto) 1.9, Baso % (Auto) 0.5, Neut # (Auto) 6.3, Lymph # (Auto) 1.4, [place] # (Auto) 0.8, Eos # (Auto) 0.2, Baso # (Auto) 0.0, PT 11.3, INR 1.02, APTT 23.4, Sodium 135 L, Potassium 4.1, Chloride 105, Carbon Dioxide 25, Anion Gap 9.1, BUN 24 H, Creatinine 0.70, Estimated Creat Clear 43, Estimated GFR 80, Est GFR ( Amer) 96, Glucose 161 H, Calcium 9.3, Total Bilirubin 0.3, AST 30, ALT 23, Alkaline Phosphatase 160 H, Total Protein 6.6, Albumin 3.9, Globulin 2.7, Albumin/Globulin Ratio 1.4 03/26/25 19:57 03/26/25 19:57 Orders (Tests/Meds): ED MEDICATIONS Discontinued Medications Generic Name Dose Route Start Last Admin Trade Name Freq PRN Reason Stop Dose Admin Acetaminophen 1,000 mg 03/26/25 22:54 03/26/25 22:56 Acetaminophen 500mg Tab PO 03/26/25 22:55 1,000 mg ONCE ONE Administration Ketorolac Tromethamine 15 mg 03/26/25 22:54 03/26/25 22:56 Ketorolac 30mg/Ml Vial IV 03/26/25 22:55 15 mg ONCE ONE Administration Morphine Sulfate 4 mg 03/26/25 20:00 03/26/25 20:17 Morphine 4mg/Ml Syringe IV 03/26/25 20:01 4 mg ONCE ONE Administration Ondansetron HCl 4 mg 03/26/25 20:00 03/26/25 20:17 Ondansetron 4mg/2ml Vial IV 03/26/25 20:01 4 mg ONCE ONE Administration Tetanus/Reduced Diphtheria/Acell Pertussis 0.5 ml 03/26/25 20:00 03/26/25 20:18 Tet/Diphth/Pert-Adult 0.5ml Syringe IM 03/26/25 20:01 0.5 ml .ONCE ONE Administration ORDERS Category Date Time Status CT bony pelvis Stat Cat Scan 03/26/25 19:[address] cervical spine wo con Stat Cat Scan 03/26/25 19:[address] head/brain wo con Stat Cat Scan 03/26/25 19:[address] lumbar spine wo con Stat Cat Scan 03/26/25 19:[address] thoracic spine wo con Stat Cat Scan 03/26/25 19:59 Completed Femur XR right 2 views [XR femur RT 2V] Stat Exams 03/26/25 19:59 Completed Knee XR right 3 views [XR knee RT 3V] Stat Exams 03/26/25 19:59 Completed CBC w/Auto Diff [Complete Blood Count Auto Diff] Stat Lab 03/26/25 19:57 Completed CMP [Comprehensive Metabolic Panel] Stat Lab 03/26/25 19:57 Completed PTT [Activated Partial Thrombo Time] Stat Lab 03/26/25 19:57 Completed Prothrombin Time INR Stat Lab 03/26/25 19:57 Completed Medical Decision Narrative: In summary, this patient is a 84-year-old female presenting to the Emergency Department for evaluation of fall with right hip pain. Differential diagnoses considered include but are not limited to fracture, contusion, strain/sprain, polytrauma, neurovascular injury. Ruling out the most morbid conditions drove assessment. It should be noted patient's history includes hypertension, hyperlipidemia on aspirin which may not be at goal therapy. This complicates all aspects of care by increasing patient's risk for morbidity. On exam, the patient is lying in bed in no acute distress. She has tenderness to palpation of the right proximal hip with limited range of motion secondary to pain. Otherwise, she only has minor skin tears to the bilateral forearms noted on exam. Patient was given Tdap booster for skin tears, and the larger of the 2 was repaired with Steri-Strips. No other traumatic injuries noted. She is neurovascular intact in all [address] head without contrast, CT C/T/L-spine without contrast, CT bony pelvis without contrast, and x-rays of the right femur and knee. She was given IV morphine and Zofran for symptomatic improvement of pain. Basic lab evaluation was also obtained.. I independently interpreted x-ray and CT prior to the radiologist read and noted right-sided superior and inferior pubic rami fractures. Please see their read for final interpretation. Labs were obtained that demonstrated reassuring CBC with no significant leukocytosis or anemia. Chemistries reassuring with only very mild hyponatremia and mildly elevated BUN. Nothing actionable currently. We do not have Ortho on-call right now, so I called and had an interactive discussion with Dr. Lewis at with trauma/orthopedics. He advised weightbearing as tolerated with walker to help offload weight from her painful right lower extremity and to help with balance. He advised nothing to do surgically for these fractures and that she can follow-up outpatient with Ortho of her choosing, as she is visiting from [place]. We tried to ambulate the patient with a walker, however she is unable to put any sort of weight on her right leg and collapses with any attempt. Given this, I called and had an interactive discussion with the hospitalist who is going to admit the patient here for work on mobilization. She was admitted in stable condition Critical Care Critical Care Time Critical Care Time: No
--- NOTE | 2025-03-26 22:27 | PC.NURSE ---
Contacted [facility] for a possible transfer for pt
[2025-03-26] MEDS: KETOROLAC 30MG/ML VIAL 15 MG IV (22:56)
[2025-03-26] MEDS: ACETAMINOPHEN 500MG TAB 1000 MG PO (22:56)
--- NOTE | 2025-03-26 23:51 | PC.NURSE ---
PT arrived to floor at this time
--- NOTE | 2025-03-27 00:30 | EXP.HP ---
History of Present Illness *Admission Date: 03/26/25 *Reason for visit:: Fall *History of present illness: Marlin Moreira is a 84-year-old female with medical history significant for hypertension, anxiety/depression who presents after a fall while playing a dog in her driveway. Patient is visiting daughter from [place], and she was playing with the neighbors dog in the driveway this afternoon when she fell on her right hip and the back of her head. She hit the back of her head on the pavement without loss of consciousness. She was unable to get up after the fall and had significant right sided hip pain. She called out to her family who then called EMS. She denies dizziness, chest pain, shortness of breath before or after the fall. Additionally, the dog also bit her left and right forearms. Workup in the ED significant for displaced right pubic superior and inferior rami fractures. Our orthopedic surgeon was not on-call tonight, therefore ED provider reached out to orthopedic who advised fractures are nonsurgical and recommended weightbearing as tolerated. Patient was trialed weightbearing in the ED with a walker but had significant right hip pain and therefore unable to bear weight. For this reason, I discussed case with ED provider and decision was made to admit patient for the same and evaluation of her PT/OT [facility] Disclaimer: The information contained in this section may have been updated after the patient was seen, as this information can be updated by other users. Medical History (Updated 03/27/25 @ 00:47 by Joan Camarena RN) Skin cancer Breast cancer (~1999) Hypertension Depression Surgical History (Updated 03/27/25 @ 02:45 by Joan Camarena RN) History of cholecystectomy History of hysterectomy History of knee replacement (~10/2024) Family History (Updated 03/27/25 @ 00:45 by Joan Camarena RN) Father Diabetes type 1 Mother Stroke Other Cancer Social History (Updated 03/27/25 @ 00:44 by Joan Camarena RN) Smoking Status: Never smoker alcohol intake: never current occupational status: retired Travel in the last 8 weeks?: None Have you lived/traveled outside US in past 30 days?: No Contact w/someone who lives/traveled outside US past 30 days?: No Exposure to someone with infectious disease in past 14 days?: No Do you have a fever (greater than 100.4 F or 38 C)?: No Have you tested positive for COVID-19?: No Exposed to someone with COVID-19 in past 14 days?: No Do you have a sore throat?: No Do you have a cough?: No Do you have any weakness?: No Do you have any diarrhea?: No Are you experiencing any unusual bleeding?: No Do you have any muscle aches/pain?: No Do you have any abdominal pain?: No Are you experiencing loss of taste or smell?: No Meds Home Medications and Allergies Home Medications ?Medication ?Instructions ?Recorded ?Confirmed ?Type aspirin 81 mg tablet,delayed 81 mg PO BID 03/26/25 03/26/25 History release atorvastatin 10 mg tablet 10 mg PO HS 03/26/25 03/26/25 History fluticasone propionate 50 1 spray intranasal BID 03/26/25 03/26/25 History mcg/actuation nasal spray,suspension losartan 50 mg tablet 50 mg PO DAILY 03/26/25 03/26/25 History sertraline 50 mg tablet 50 mg PO BID 03/26/25 03/26/25 History New Prescriptions to Start Prescriptions: Allergies Allergy/AdvReac Type Severity Reaction Status Date / Time No Known Allergies Allergy Verified 03/26/25 20:03 Exam Data for Last 24 hours Vital signs and Labs for Last 24 Hours: Temp Pulse Resp BP Pulse Ox O2 Del Method O2 Flow Rate 98 F 71 15 127/54 L 96 Room Air 2 03/26/25 23:45 03/26/25 23:45 03/26/25 23:45 03/26/25 23:45 03/26/25 23:30 03/26/25 23:45 03/26/25 22:00 Laboratory Results - last 24 hr 03/26/25 19:57: WBC 8.8, RBC 5.01, Hgb 13.6, Hct 42.0, MCV 83.8, MCH 27.1, MCHC 32.4, RDW 13.8, Plt Count 254, MPV 9.8, Neut % (Auto) 72.2, Lymph % (Auto) 15.8, [place] % (Auto) 8.6, Eos % (Auto) 1.9, Baso % (Auto) 0.5, Neut # (Auto) 6.3, Lymph # (Auto) 1.4, [place] # (Auto) 0.8, Eos # (Auto) 0.2, Baso # (Auto) 0.0, PT 11.3, INR 1.02, APTT 23.4, Sodium 135 L, Potassium 4.1, Chloride 105, Carbon Dioxide 25, Anion Gap 9.1, BUN 24 H, Creatinine 0.70, Estimated Creat Clear 43, Estimated GFR 80, Est GFR ( Amer) 96, Glucose 161 H, Calcium 9.3, Total Bilirubin 0.3, AST 30, ALT 23, Alkaline Phosphatase 160 H, Total Protein 6.6, Albumin 3.9, Globulin 2.7, Albumin/Globulin Ratio 1.4 I & O for Last 24 hours: Intake & Output 03/24/25 03/25/25 03/26/25 03/27/25 23:59 23:59 23:59 23:59 Weight 64.41 kg Constitutional Constitutional: no acute distress *Routine HEENT Exam Head: Present normocephalic Eye: Present EOMI and PERRL ENT: Present mucous membranes moist *Routine Neck Exam Neck: Present supple; Absent lymphadenopathy *Routine Respiratory Exam Respiratory: Present CTA bilaterally *Routine Cardiovascular Exam Cardiovascular: Present RRR *Routine Abdominal Exam Abdominal: Present soft and normoactive bowel sounds; Absent tenderness *Routine Rectal Exam Rectal:: deferred *Routine Genitalia Exam Genitalia:: deferred *Routine Extremities Exam Extremities: Absent cyanosis, clubbing or edema *Routine Skin Exam Skin: Present warm; Absent rash *Routine Neurological Exam Neurological: Present alert and oriented X3 Assessment and Plan *Assessment and plan (1) Pelvic hematoma: Status: Acute Category: Medical (2) Fracture of right inferior pubic ramus: Status: Acute Category: Medical Code(s): S32.591A - Other specified fracture of right pubis, initial encounter for closed fracture (3) Fracture of right superior pubic ramus: Status: Acute Category: Medical Code(s): S32.511A - Fracture of superior rim of right pubis, initial encounter for closed fracture Plan Marlin Moreira is a 84-year-old female with medical history significant for hypertension, anxiety/depression who presents after a fall while playing a dog in her driveway. Patient is visiting daughter from [place], and she was playing with the neighbors dog in the driveway this afternoon when she fell on her right hip and the back of her head. She hit the back of her head on the pavement without loss of consciousness. She was unable to get up after the fall and had significant right sided hip pain. She called out to her family who then called EMS. She denies dizziness, chest pain, shortness of breath before or after the fall. Additionally, the dog also bit her left and right forearms. Workup in the ED significant for displaced right pubic superior and inferior rami fractures. Our orthopedic surgeon was not on-call tonight, therefore ED provider reached out to orthopedic who advised fractures are nonsurgical and recommended weightbearing as tolerated. Patient was trialed weightbearing in the ED with a walker but had significant right hip pain and therefore unable to bear weight. For this reason, I discussed case with ED provider and decision was made to admit patient for the same and evaluation of her PT/OT. #Right pubic rami fractures #Pelvic hematoma #Fall ? Fell on right hip, back of head while playing with neighbors dog on driveway. CT showed displaced superior and inferior rami fractures, advised this is nonsurgical and recommended WBAT. ? CT pelvis also shows poorly defined hematoma collection surrounding pubic rami fractures. ? Patient's pain and comfort has significantly improved on my evaluation. Received morphine, Toradol, [place]. Distal pulses, sensation are intact. ? No precipitating factors contributing to the fall other than losing balance while playing with a dog. ? PT/OT consulted, pending further recommendations. ? Continue pain control with [place]. Avoiding NSAIDs for now due to hematoma as above. ? Hold home aspirin (uses for primary prevention of CVD) due to hematoma as above. ? Follow-up morning CBC. #Dog bites ? Lacerations on ventral forearms bilaterally. No active drainage. Hemostatic at this time, with overlying Steri-Strips. ? Received Tdap in the ED. Dog was not stray, lower concern for rabies at this time. Patient will find out if dog has had rabies vaccination. ? Given extent of lacerations, will start prophylactic antibiotic. ? Ordered one-time dose of Unasyn, continue with Augmentin in the morning. ? Follow-up CBC in the morning. #Hypertension ? Hold home losartan due to stable pressures at this time. #Anxiety/depression ? Continue home sertraline 50 mg twice daily. CODE STATUS: DNR/DNI DVT prophylaxis: SCDs
[2025-03-27] MEDS: HYDROCODONE/APAP 5/325 MG TABLET 2 TAB PO (01:05)
--- NOTE | 2025-03-27 02:54 | PC.NURSE ---
Patient requested to take a break from the SCDs device at this time. She stated that she would like to get some rest, for the SCD machine sounds were keeping her awake.
[2025-03-27] MEDS: MELATONIN 5MG TABLET 5 MG PO ×2 (03:15→21:42)
--- NOTE | 2025-03-27 03:35 | PC.WOUNDNOTE ---
Top image shows a skin tear located on the patient's left posterior forearm. Skin tear was dressed with steri-strips by ER nursing staff prior to her arrival to the second floor. Bottom image shows a skin tear located on the patient's right anterior forearm. Skin tear was left open to air. Upon assessment, the patient stated that the skin tears were caused while playing with a dog (Doberman Pinscher breed). She also reported that she thinks the dog had bit her left forearm. Both skin tear dressings were changed at 03:10 this shift by me after the provider (Zain Cruz MD) assessed them at the bedside. Materials used: one non-adherent pad (cut in half to fit on each forearm), one roll of cotton stretch-bandaging (cut in half for each forearm), and Coban wrap for securing. Patient tolerated the procedure very well, for no significant pain was reported. Mild bleeding was noted to the right forearm skin tear; no bleeding was noted to the left forearm skin tear.
[2025-03-27 04:00] VITALS: BP 143/71; PULSE 70; RESP 16; TEMP 36.4; O2SAT 98; BMI 24.6
--- NOTE | 2025-03-27 04:45 | PC.NURSE ---
Addendum entered by Joan Camarena RN 03/27/25 05:30: Unintentional weight loss of 8lbs. Addendum entered by Joan Camarena RN 03/27/25 05:10: Intravenous antibiotic therapy (Unasyn) initiated this shift. Original Note: Ms Marlin Moreira was newly admitted on behalf of the documented diagnosis pelvic fracture. Admission assessments were completed by me. DNR/DNI requested by patient, form signed/witnessed this shift. During initial assessment, the patient stated that she had fallen onto her right hip after being knocked into by a Doberman puppy and hit the back of her head without losing consciousness. Also has a history of multiple falls + unsteadiness w/o dizziness. Skin tears (patient stated that they were caused by the dog) were assessed and newly dressed by me this shift (see initial nursing wound note). Reports a goose egg on back of her head. Patient stated that due to a failed ambulation/weight bearing attempt in ER, she is unable to ambulate for now. Bed rest encouraged at this time. PT/OT consult ordered by provider. Patient complained of right hip pain that would become excruciating during any movement of her right lower extremity; she stated that she does not have pain while at rest, however. [place] was administered per OCT (1 tablet was given according to OCT instructions, advancement to second tablet was not needed at the time). Upon assessment as well, the patient stated that during certain meals (especially dairy product consumption), she would have frequent bowel movements with abdominal cramping. 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 Zain Cruz MD was made aware. Nutrition consult ordered per protocol. Since arrival to the floor, patient also verbalized difficulties with falling asleep; an order for melatonin was obtained and administered per OCT. Patient is currently resting in bed with eyes closed, and respirations are even/unlabored. Auscultation of heart, bowels, and lungs within normal findings. A female purewick is in place for urination needs due to current mobility status. SCDs for VTE prophylaxis; compression to resume later this morning per patient request. Tolerating room air with oxygen saturations > 90%. At this time, no new needs were verbalized. Bed alarm on. Call light within reach.
[2025-03-27] MEDS: AMPICILLIN/SULBACTAM 3 GM in 0.9 % SODIUM CHLORIDE 100 ML IV (05:37)
[2025-03-27 06:37] LABS: Hematocrit 39.9 % (37.0-47.0); Hemoglobin 12.8 g/dL (12.2-16.2); Immature Granulocytes % 0.4 %; Mean Corpuscular HGB Conc 32.1 g/dL (31.8-35.4); Mean Corpuscular Hemoglobin 27.1 pg (27.0-31.2); Mean Corpuscular Volume 84.5 fl (81-99); Nucleated Red Blood Cells % 0 %; Platelet Count 179 K/mm3 (142-424); Red Blood Count 4.72 M/mm3 (4.20-5.40); Red Cell Distribution Width-SD 42.0 fL; White Blood Count 8.5 K/mm3 (4.8-10.8)
[2025-03-27 06:58] LABS: Albumin Level 3.0 g/dl (3.5-5.0); Albumin/Globulin Ratio 1.1 (1.1-1.8); Blood Urea Nitrogen 21 mg/dl (7-17); Carbon Dioxide 24 mmol/L (22.0-30.0); Chloride 109 mmol/L (98-107); Creatinine Clearance Estimated 43 mL/min (50-200); Creatinine,Serum 0.60 mg/dl (0.52-1.04); Estimated Glomerular Filt Rate 95 ml/min (>60); GFR (African American) 115 ML/MIN (>60); Globulin 2.8 g/dL (1.3-3.2); Total Protein,Serum 5.8 g/dl (6.3-8.2)
[2025-03-27 07:48] LABS: Alanine Aminotransferase 19 U/L (12-78); Alkaline Phosphatase 142 U/L (38-126); Anion Gap 9.0 mEq/L (5-15); Aspartate Amino Transferase 33 U/L (14-36); Bilirubin,Total 0.3 mg/dl (0.2-1.3); Calcium 9.2 mg/dl (8.4-10.2); Glucose 119 mg/dl (74-100); Potassium 4.0 mmoL/L (3.5-5.1); Sodium 138 mmol/L (136-145)
[2025-03-27 08:00] VITALS: BP 112/50; PULSE 70; RESP 16; TEMP 36.7; O2SAT 95; BMI 24.6
[2025-03-27 08:30] VITALS: O2SAT 95
--- NOTE | 2025-03-27 08:30 | PC.NURSE ---
pt was educated on the importance of turning side to side to keep bottom side from getting red. pt refused to turn at this time.
--- NOTE | 2025-03-27 08:32 | EXP.ACUTE.PN ---
Subjective *Date: 03/27/25 *Time: 12:37 Interval history: Still having pelvic pain. Stable on room air. As long as she does not move she does not hurt. Denies any chest pain or shortness of breath. No nausea or vomiting. Medical Exam Vital signs and Labs for Last 24 Hours: Vital Signs Temp Pulse Pulse Pulse Pulse Resp BP 03/27/25 06:40 03/27/25 05:00 03/27/25 04:00 97.5 F L 70 16 03/27/25 03:00 03/27/25 01:00 03/27/25 00:05 03/26/25 23:45 98 F 71 15 127/54 L 03/26/25 23:30 71 15 127/54 L 03/26/25 23:13 69 20 131/57 L 03/26/25 22:30 73 19 132/53 L 03/26/25 22:00 75 18 128/54 L 03/26/25 21:55 97.5 F L 73 16 03/26/25 21:30 71 15 116/45 L 03/26/25 21:18 76 16 122/50 L 03/26/25 20:05 71 71 03/26/25 19:58 98 F 71 18 BP Pulse Ox O2 Del Method O2 Flow Rate 03/27/25 06:40 Room Air 03/27/25 05:00 Room Air 03/27/25 04:00 143/71 H 98 Room Air 03/27/25 03:00 Room Air 03/27/25 01:00 Room Air 03/27/25 00:05 Room Air 03/26/25 23:45 Room Air 03/26/25 23:30 96 03/26/25 23:13 95 03/26/25 22:30 97 03/26/25 22:00 97 2 03/26/25 21:55 129/60 93 L Room Air 03/26/25 21:30 95 03/26/25 21:18 93 L Nasal Cannula 2 03/26/25 20:05 03/26/25 19:58 129/67 95 Room Air Intake and Output 03/26/25 03/27/25 03/27/25 23:59 07:59 15:59 Intake Total 150 / 150 Balance 150 / 150 Intake: Intake, Oral Amount 150 / 150 Other: Weight 65.913 kg 65.487 kg 65.487 kg Patient Weight 03/27/25 23:59 Weight 65.487 kg Laboratory Results - last 24 hr 03/26/25 19:57: WBC 8.8, RBC 5.01, Hgb 13.6, Hct 42.0, MCV 83.8, MCH 27.1, MCHC 32.4, RDW 13.8, Plt Count 254, MPV 9.8, Neut % (Auto) 72.2, Lymph % (Auto) 15.8, [place] % (Auto) 8.6, Eos % (Auto) 1.9, Baso % (Auto) 0.5, Neut # (Auto) 6.3, Lymph # (Auto) 1.4, [place] # (Auto) 0.8, Eos # (Auto) 0.2, Baso # (Auto) 0.0, PT 11.3, INR 1.02, APTT 23.4, Sodium 135 L, Potassium 4.1, Chloride 105, Carbon Dioxide 25, Anion Gap 9.1, BUN 24 H, Creatinine 0.70, Estimated Creat Clear 43, Estimated GFR 80, Est GFR ( Amer) 96, Glucose 161 H, Calcium 9.3, Total Bilirubin 0.3, AST 30, ALT 23, Alkaline Phosphatase 160 H, Total Protein 6.6, Albumin 3.9, Globulin 2.7, Albumin/Globulin Ratio 1.4 03/27/25 06:15: WBC 8.5, RBC 4.72, Hgb 12.8, Hct 39.9, MCV 84.5, MCH 27.1, MCHC 32.1, RDW 13.7, Plt Count 179 D, MPV 9.6, Neut % (Auto) 74.5, Lymph % (Auto) 11.7, [place] % (Auto) 12.4 H, Eos % (Auto) 0.8, Baso % (Auto) 0.2, Neut # (Auto) 6.3, Lymph # (Auto) 1.0, [place] # (Auto) 1.1 H, Eos # (Auto) 0.1, Baso # (Auto) 0.0, Sodium 138, Potassium 4.0, Chloride 109 H, Carbon Dioxide 24, Anion Gap 9.0, BUN 21 H, Creatinine 0.60, Estimated Creat Clear 43, Estimated GFR 95, Est GFR ( Amer) 115, Glucose 119 H D, Calcium 9.2, Total Bilirubin 0.3, AST 33, ALT 19, Alkaline Phosphatase 142 H, Total Protein 5.8 L, Albumin 3.0 L D, Globulin 2.8, Albumin/Globulin Ratio 1.1 I & O for Labs for Last 24 Hours: Intake & Output 03/24/25 03/25/25 03/26/25 03/27/25 23:59 23:59 23:59 23:59 Intake Total 150 / 150 Balance 150 / 150 Weight 65.913 kg 65.487 kg Constitutional: Present no acute distress, average body habitus and cooperative Head: Present atraumatic Respiratory: Present normal respiratory effort; Absent rhonchi, wheezes or crackles Cardiac: Present Reg Rate and Rhythm GI: Present soft and normal bowel sounds; Absent distention or tenderness Extremities: Present full ROM; Absent normal inspection Comment:: Bandages on forearms covering bite brito. No significant bleeding Skin: Present wounds; Absent erythema Neuro: Present Grossly Intact, alert, awake, oriented x 3 and moves all extremities Assessment and Plan *Assessment and plan (1) Pelvic hematoma: Status: Acute Category: Medical (2) Fracture of right inferior pubic ramus: Status: Acute Category: Medical Code(s): S32.591A - Other specified fracture of right pubis, initial encounter for closed fracture (3) Fracture of right superior pubic ramus: Status: Acute Category: Medical Code(s): S32.511A - Fracture of superior rim of right pubis, initial encounter for closed fracture (4) Dog bite of arm: Status: Acute Category: Medical Code(s): S41.159A - Open bite of unspecified upper arm, initial encounter; W54.0XXA - Bitten by dog, initial encounter (5) Hypertension: Status: Chronic Category: Medical Code(s): I10 - Essential (primary) hypertension (6) Depression: Status: Chronic Category: Medical Code(s): F32.A - Depression, unspecified Plan Marlin Moreira is a 84-year-old female with medical history significant for hypertension, anxiety/depression who presents after a fall while playing a dog in her driveway. Patient is visiting daughter from [place], and she was playing with the neighbors dog in the driveway this afternoon when she fell on her right hip and the back of her head. She hit the back of her head on the pavement without loss of consciousness. She was unable to get up after the fall and had significant right sided hip pain. She called out to her family who then called EMS. She denies dizziness, chest pain, shortness of breath before or after the fall. Additionally, the dog also bit her left and right forearms. Workup in the ED significant for displaced right pubic superior and inferior rami fractures. Our orthopedic surgeon was not on-call tonight, therefore ED provider reached out to orthopedic who advised fractures are nonsurgical and recommended weightbearing as tolerated. Patient was trialed weightbearing in the ED with a walker but had significant right hip pain and therefore unable to bear weight. For this reason, I discussed case with ED provider and decision was made to admit patient for the same and evaluation of her PT/OT. Stable this morning. Awaiting therapy eval. Continues to require inpatient management. Problems addressed as follows #Right pubic rami fractures #Pelvic hematoma #Fall ? Fell on right hip, back of head while playing with neighbors dog on driveway. CT showed displaced superior and inferior rami fractures, advised this is nonsurgical and recommended WBAT. ? CT pelvis also shows poorly defined hematoma collection surrounding pubic rami fractures. ? Continuing to require opiates for pain control. Continue morphine 2 mg as needed every 4 hours IV, hydrocodone for longer benefit 5 mg every 4-6 hours for moderate to severe pain. Toradol 30 mg as needed every 6 hours. Monitor for toxicity. ? PT/OT consulted, pending further recommendations. ? Hold home aspirin (uses for primary prevention of CVD) due to hematoma as above. -Labs this morning with hemoglobin stable at 12, white count 8.5. Kidney function normal BUN 21, creatinine 0.6. Potassium 4.0. Repeat CBC, CMP, magnesium ordered for the morning. #Dog bites ? Lacerations on ventral forearms bilaterally. No active drainage. Hemostatic at this time, with overlying Steri-Strips. ? Received Tdap in the ED. Dog was not stray, lower concern for rabies at this time. Patient will find out if dog has had rabies vaccination. ? Given extent of lacerations, initiated on Augmentin 3 times a day 500 mg. Will continue empiric 7-day course #Hypertension: Well-controlled off blood pressure meds at this time. Monitor daily for need to resume home losartan. #Anxiety/depression: Continue home sertraline 50 mg twice daily. CODE STATUS: DNR/DNI DVT prophylaxis: SCDs Regular diet
[2025-03-27] MEDS: SERTRALINE 50MG TABLET 50 MG PO (08:50)
[2025-03-27] MEDS: AMOXICILLIN/POT CLAVULAN 500MG TABLET 1 EACH PO ×3 (08:50→20:02)
--- NOTE | 2025-03-27 08:53 | HMH.PHAINT1 ---
Pharmacy Intervention Comments: MEDICATION RECONCILIATION COMPLETED ON PATIENT USING EXTERNAL FILL HISTORY FROM PHARMACY. -CUBA PATINO, [place]
[2025-03-27] MEDS: HYDROCODONE/APAP 5/325 MG TABLET 1 TAB PO ×3 (10:52→19:59)
[2025-03-27] MEDS: SENNOSIDES 8.6MG/DOCUSATE 50MG TABLET 1 TAB PO ×2 (13:55→20:02)
[2025-03-27 16:00] VITALS: BP 120/64; PULSE 78; RESP 16; TEMP 36.7; O2SAT 96
--- NOTE | 2025-03-27 17:05 | PC.NURSE ---
pt is A&Ox4. pt came in late last night after being knocked down by her daughter's dog. pt has right hip fracture that is inoperable and multiple skin tears on both forearms. pt has asked for pain meds this shift to control the pain, pain relieved by prn pain meds. pt has no other needs at this time. call light within reach. safety measures in place.
[2025-03-27 20:00] VITALS: BP 138/64; PULSE 75; RESP 16; TEMP 36.9; O2SAT 93
[2025-03-27] MEDS: SERTRALINE 50 MG PO (20:03)
[2025-03-27] MEDS: ATORVASTATIN 10 MG PO (20:15)
[2025-03-28] MEDS: HYDROCODONE/APAP 5/325 MG TABLET 1 TAB PO (00:34)
[2025-03-28 04:00] VITALS: BMI 26.2
--- NOTE | 2025-03-28 05:40 | PC.NURSE ---
Pt. is alert and orientated x 4. Pt is on room air. Pt. has an inoperable right hip/pelvic fracture. Pt. has been resting in the bed. Pt. Medicated every 4 hours for pain. Taking one [place] with adequate pain relief. Pt. states that if she is laying still she has minimal pain. Pain 1-4/10 laying still. If moving the pain is considerable higher 6-10/10. Pt has been getting pain meds and 30 minutes after pain meds, pt. repositioned and turned from supine to left side. Unable to turn to the right side. Pt. awaiting PT evaluation and help with mobility. Pt. has a purewick in place with adequate urine output. SCD'd in place. Personal items and call nur in reach, Bed in low and locked position. Safety measures in place.
[2025-03-28] MEDS: HYDROCODONE/APAP 5/325 MG TABLET 2 TAB PO ×3 (06:30→14:27)
[2025-03-28 07:05] LABS: Hematocrit 44.5 % (37.0-47.0); Hemoglobin 13.9 g/dL (12.2-16.2); Immature Granulocytes % 0.8 %; Mean Corpuscular HGB Conc 31.2 g/dL (31.8-35.4); Mean Corpuscular Hemoglobin 26.6 pg (27.0-31.2); Mean Corpuscular Volume 85.1 fl (81-99); Nucleated Red Blood Cells % 0 %; Platelet Count 189 K/mm3 (142-424); Red Blood Count 5.23 M/mm3 (4.20-5.40); Red Cell Distribution Width-SD 42.8 fL; White Blood Count 8.6 K/mm3 (4.8-10.8)
[2025-03-28 07:06] LABS: Alanine Aminotransferase 16 U/L (12-78); Albumin Level 3.4 g/dl (3.5-5.0); Albumin/Globulin Ratio 1.4 (1.1-1.8); Alkaline Phosphatase 138 U/L (38-126); Anion Gap 9.8 mEq/L (5-15); Aspartate Amino Transferase 32 U/L (14-36); Bilirubin,Total 0.4 mg/dl (0.2-1.3); Blood Urea Nitrogen 15 mg/dl (7-17); Calcium 9.2 mg/dl (8.4-10.2); Carbon Dioxide 25 mmol/L (22.0-30.0); Chloride 108 mmol/L (98-107); Creatinine Clearance Estimated 46 mL/min (50-200); Creatinine,Serum 0.60 mg/dl (0.52-1.04); Estimated Glomerular Filt Rate 95 ml/min (>60); GFR (African American) 115 ML/MIN (>60); Globulin 2.4 g/dL (1.3-3.2); Glucose 113 mg/dl (74-100); Potassium 3.8 mmoL/L (3.5-5.1); Sodium 139 mmol/L (136-145); Total Protein,Serum 5.8 g/dl (6.3-8.2)
[2025-03-28 08:00] VITALS: BP 129/59; PULSE 89; RESP 18; TEMP 36.8; O2SAT 99
[2025-03-28] MEDS: AMOXICILLIN/POT CLAVULAN 500MG TABLET 1 EACH PO ×2 (08:21→12:09)
[2025-03-28] MEDS: SERTRALINE 50 MG PO (08:21)
[2025-03-28] MEDS: SENNOSIDES 8.6MG/DOCUSATE 50MG TABLET 1 TAB PO (08:22)
--- NOTE | 2025-03-28 09:52 | HMH.OTEV ---
OT Inpatient Evaluation Rehab OT IP Evaluation Start: 03/26/25 23:46 Freq: ONCE Status: Active Protocol: Document 03/28/25 09:46 [facility] (Rec: 03/28/25 09:51 [facility] [id number]) Rehab OT IP Assessment Subjective History Pt oriented x 3 on arrival. Pt agreeable to engage in therapy evaluation. Pt admitted on 03/26/25 due to fall with pelvic fx. History and physical: Marlin Moreira is a 84-year-old female with medical history significant for hypertension, anxiety/ depression who presents after a fall while playing a dog in her driveway. Patient is visiting daughter from [place], and she was playing with the neighbors dog in the driveway this afternoon when she fell on her right hip and the back of her head. She hit the back of her head on the pavement without loss of consciousness. She was unable to get up after the fall and had significant right sided hip pain. She called out to her family who then called EMS. She denies dizziness, chest pain, shortness of breath before or after the fall. Additionally, the dog also bit her left and right forearms. Workup in the ED significant for displaced right pubic superior and inferior rami fractures. Our orthopedic surgeon was not on-call tonight, therefore ED provider reached out to [facility] who advised fractures are nonsurgical and recommended weightbearing as tolerated. Patient was trialed weightbearing in the ED with a walker but had significant right hip pain and therefore unable to bear weight. For this reason, I discussed case with ED provider and decision was made to admit patient for the same and evaluation of her PT/OT Subjective Prior to being in the hospital, pt lived at home alone. Pt claims normally she is independent with all ADLs and IADLs. Pt also still drives. Normally pt does not use any type of AE during functional transfers. Objective Patient Orientation Person,Place,Birthday Right Upper WFL Extremity Gross ROM Left Upper Extremity WFL Gross ROM Transfer Training Sit/Stand Transfer Assist Level Minimal x 1 (25% assist) Chair Transfer Contact Guard/Hand Hold Ability Chair Transfer Sit to/from Ambulatory Technique Chair Transfer Rolling Walker Assistive Devices Rehab OT IP prob,goals,plan Problems Date of Evaluation: 03/28/25 OT IP Problems Bed Mobility,Transfers,Balance,Self care,Safety Rehab Potential Rehab Potential Good Equipment Needs Assistive Devices Rolling / Wheeled Walker Plan OT intervention Plan Bed Mobility,Transfers,Balance,Self care,Safety, Therapeutic Exercise OT Plan Frequency Daily Duration LOS Discharge Goals Bed Mobility Ability Assistance x1 Sit to Stand Chair Supervision/Stand by,Contact Guard/Hand Hold Transfer Ability Chair Transfer Supervision/Stand by,Contact Guard/Hand Hold Ability Chair Transfer Sit to/from Ambulatory Technique Chair Transfer Rolling Walker Assistive Devices Lower Body Dressing Moderate Assistance Ability Upper Body Dressing Minimal Assistance Ability Performing Toilet Minimal Assistance Hygiene Ability Overall Commode/ Standby Assistance,Contact Guard Toilet Transfer Ability Commode/Toilet Sit to/from Ambulatory Transfer Technique Discharge Plan OT Discharge Plan Pt will continue to be seen for OT services while at [facility]. Pt can return home with daughter's assistance once she is medically stable per physician. Therapist does recommend OT evaluation for continued skilled therapy. Therapist also recommends bsc and rolling walker to increase functional independence. Pt would benefit from continued skilled therapy services in order to improve strength, safety, endurance, ADL independence, and functional transfers to reach PLOF. Eval Complexity Eval Charge Codes 77999 - Moderate Complexity PHYSICIAN CERTIFICATION: I certify the specified therapy services for Marlin Moreira are required, authorized, and reviewed every 30 days.
--- NOTE | 2025-03-28 10:42 | HMH.PTEV ---
Physical Therapy Evaluation Rehab PT IP Evaluation Start: 03/26/25 23:47 Freq: ONCE Status: Active Protocol: Document 03/28/25 10:19 [facility] (Rec: 03/28/25 10:42 [facility] [id number]) Subjective/History History History 84-year-old female with medical history significant for hypertension, anxiety/depression who presents after a fall while playing a dog in her driveway. Patient is visiting daughter from [place], and she was playing with the neighbors dog in the driveway this afternoon when she fell on her right hip and the back of her head . She hit the back of her head on the pavement without loss of consciousness. She was unable to get up after the fall and had significant right sided hip pain. She called out to her family who then called EMS. She denies dizziness, chest pain, shortness of breath before or after the fall. Additionally, the dog also bit her left and right forearms. Workup in the ED significant for displaced right pubic superior and inferior rami fractures. Our orthopedic surgeon was not on-call tonight, therefore ED provider reached out to orthopedic who advised fractures are nonsurgical and recommended weightbearing as tolerated. Pt lives with her daughter in [facility] and is independent with all mobility using a cane. She is currently staying with her other daughter with 1 [address] the home and. Subjective Subjective Pt presents awake, supine in bed, no pain at rest, but increased R LE pain with any movement. She does agree to OOB mobility assessment this date. [facility] How much help from another person do you currently need... Turning from your A little back to your side while in a flat bed without using bedrails? Moving from lying on A little back to sitting on the side of a flat bed without using bedrails? Moving to and from a A little bed to a chair ( including a wheelchair)? Standing up from a A little chair using your arms? (e.g., wheelchair, bedside chair) Walking in hospital A little room? Climbing 3-5 steps A little with a railing? Mobility Score 18 Mobility Level [facility] Mobility 6 Walk 10 steps or more Mobility Calculator Rehab PT IP Eval Objective Appearance Patient Behavior Appropriate Patient Orientation Person,Place,Time Difficulty following none instructions Speech Pattern Clear Ambulation Patient Able to Yes Ambulate Ambulation Observation IP General Gait Antalgic Gait,Decrease Weight Bear (R),Decrease Stride Pattern Observation Lngth (R),Decrease Stride Lngth (L) Ambulation Distance 15 (feet) Ambulation Assistive Rolling Walker Device Ambulation Ability Minimal x 1 (25% assist) Balance Ability to Arise Able, uses arms to help Sitting Balance Steady, safe Standing Balance Steady, wide stance Dynamic Sitting Good Balance Ability Dynamic Standing Fair Balance Ability Transfers Bed Transfer Ability Minimal x 1 (25% assist) Chair Transfer Minimal x 1 (25% assist) Ability Sit to Stand Bed Minimal x 1 (25% assist) Transfer Ability Sit to Stand Chair Minimal x 1 (25% assist) Transfer Ability MMT RLE PT MMT ABN Abnormal MMT Grade grossly 2/5 in hip Rehab PT IP prob,goals,plan Problems Date of Evaluation: 03/28/25 PT IP Problems Bed Mobility,Transfers,Gait Rehab Potential Rehab Potential Good Plan PT Intervention Plan Bed Mobility,Transfers,Gait,Therapeutic Exercise PT Plan Frequency Daily Duration LOS Discharge Goals Bed Transfer Ability Contact Guard/Hand Hold Sit to Stand Chair Contact Guard/Hand Hold Transfer Ability Ambulation Assistive Rolling Walker Device Ambulation Distance 30 (feet) Discharge Plan PT Discharge Plan Pt is currently appropriate to return to her daughter's home once medically stable for d/c. Recommend Home Health therapy as needed. Skilled acute therapy is indicated to improve bed mobility, improve transfers, increase ambulation, improve strength in order to return pt to [facility]. Eval Complexity Eval Charge Codes 32275 - High Complexity PHYSICIAN CERTIFICATION: I certify the specified therapy services for Marlin Moreira are required, authorized, and reviewed every 30 days.
--- NOTE | 2025-03-28 10:42 | SW/DCPLANNER ---
Spoke with patient and patients daughter. PT is recommending Home Health, patient has no preference. Patient also needs a walker and bedside commode. Will follow up with carl regarding those items.
--- NOTE | 2025-03-28 11:24 | CARE MANAGER ---
Addendum entered by Ileana Ruiz RN 03/28/25 11:42: Patient/family requested [facility], information sent there. Original Note: Patient requires use of walker to aid with ambulation as she has a mobility impairment that cannot be corrected with a cane. She also requires a BSC as she cannot make it to the bathroom.
--- NOTE | 2025-03-28 12:10 | SW/DCPLANNER ---
Addendum entered by Odette Ozuna 03/29/25 09:59: [facility] is able to accept patient. Jesse Jaramillo Addendum entered by Odette Ozuna 03/29/25 09:34: Spoke with patient's daughter asking the daughter if her mother has a PCP here and daughter stated that she doesnt and shes just here visiting. Daughter told me who her PCP is and i told [facility] that for they can get the Dr to sign off. Jesse Jaramillo Addendum entered by Marlin Isbell 03/28/25 15:26: Per Иван diana/ [facility] patient has been accepted for services. Addendum entered by Bhakti Byers 03/28/25 12:27: [facility] was contacted for home health services. Original Note: Patient is currently being set up with home health services.
--- NOTE | 2025-03-28 12:14 | P.DS_ITS ---
<Statement entered by Chris Powell MD - 03/28/25 15:53> Rounded on patient after nurse practitioner. Personally examined and interviewed patient. Agree with exam findings and care plan as documented. General Admission date:: 03/26/25 Discharge date: 03/28/25 HPI HPI HPI: Marlin Moreira is a 84-year-old female with medical history significant for hypertension, anxiety/depression who presents after a fall while playing a dog in her driveway. Patient is visiting daughter from [place], and she was playing with the neighbors dog in the driveway this afternoon when she fell on her right hip and the back of her head. She hit the back of her head on the pavement without loss of consciousness. She was unable to get up after the fall and had significant right sided hip pain. She called out to her family who then called EMS. She denies dizziness, chest pain, shortness of breath before or after the fall. Additionally, the dog also bit her left and right forearms. Workup in the ED significant for displaced right pubic superior and inferior rami fractures. Our orthopedic surgeon was not on-call tonight, therefore ED provider reached out to orthopedic who advised fractures are nonsurgical and recommended weightbearing as tolerated. Patient was trialed weightbearing in the ED with a walker but had significant right hip pain and therefore unable to bear weight. For this reason, I discussed case with ED provider and decision was made to admit patient for the same and evaluation of her PT/OT Hospital Course Hospital Course Hospital Course: Marlin Moreira is a 84-year-old female with medical history significant for hypertension, anxiety/depression who presents after a fall while playing a dog in her driveway. Patient is visiting daughter from [place], and she was playing with the neighbors dog in the driveway when she fell on her right hip and the back of her head. She hit the back of her head on the pavement without loss of consciousness. She was unable to get up after the fall and had significant right sided hip pain. She called out to her family who then called EMS. She denies dizziness, chest pain, shortness of breath before or after the fall. Additionally, the dog also bit her left and right forearms. Workup in the ED significant for displaced right pubic superior and inferior rami fractures. Our orthopedic surgeon was not on-call tonight, therefore ED provider reached out to orthopedic who advised fractures are nonsurgical and recommended weightbearing as tolerated. Patient was trialed weightbearing in the ED with a walker but had significant right hip pain and therefore unable to bear weight. For this reason, the case was discussed with ED provider and decision was made to admit patient for further evaluation of her PT/OT. #Right pubic rami fractures #Pelvic hematoma #Fall ? Fell on right hip, back of head while playing with neighbors dog on driveway. CT showed displaced superior and inferior rami fractures, advised this is nonsurgical and recommended WBAT. ? CT pelvis also shows poorly defined hematoma collection surrounding pubic rami fractures. Patient hemoglobin has remained stable during admission, 13.6 on admission, 13.9 at discharge. ? Patient's pain and comfort has significantly improved on my evaluation. Distal pulses, sensation are intact. ? No precipitating factors contributing to the fall other than losing balance while playing with a dog. ? PT/OT consulted, recommendations made were patient is able to return home to her daughter's home when she is medically stable, recommendations for home health therapy as needed, skilled acute therapies and indicated to improve bed mobility, improve transfers, increased ambulation, improve strength in order to return to previous living facility. Patient does have bedside commode and walker at home in [place], will order bedside commode and walker for her daughter's house here in [place]. Patient will be discharged with PT OT outpatient. ? Patient discharged home with [place] 5/325 mg every 4 hours for moderate to severe pain. In addition to pain medicine regimen, patient discharged home on senna 1 tab twice daily and MiraLAX daily for opioid-induced constipation. ?Patient PCP in [place], Dr. Cannon, I spoke with him regarding patient's fal, continued PT/OT need once returning home, l and pain management regimen. Dr. Cannon said he is happy to see patient in the office when she returns home and continue pain medication/evaluate for further needs at that time when she returns home. #Dog bites ? Lacerations on ventral forearms bilaterally. No active drainage. Hemostatic at this time, with overlying Steri-Strips. ? Received Tdap in the ED. Dog was not stray, lower concern for rabies at this time. Patient will find out if dog has had rabies vaccination. ? Given extent of lacerations, will start prophylactic antibiotic. Patient started on Augmentin 500 mg 3 times daily x 7 days, discharged home with remainder of 7-day course. ? During admission no leukocytosis noted, white count 8.6. Patient remained afebrile, no redness or drainage noted from dog bites. #Hypertension ? Continue home blood pressure pressure medication, losartan 50 mg daily at discharge. #Anxiety/depression ? Continue home sertraline 50 mg twice daily at discharge. Total time spent on discharge 35 minutes in counseling, documentation, chart review, and direct care with patient. Exam Data for Last 24 hours Vital signs and Labs for Last 24 Hours: Temp Pulse Resp BP Pulse Ox O2 Del Method O2 Flow Rate 98.3 F 89 18 129/59 L 99 Room Air 2 03/28/25 08:00 03/28/25 08:00 03/28/25 08:00 03/28/25 08:00 03/28/25 08:00 03/28/25 11:00 03/26/25 22:00 Laboratory Results - last 24 hr 03/28/25 06:01: WBC 8.6, RBC 5.23, Hgb 13.9, Hct 44.5, MCV 85.1, MCH 26.6 L, MCHC 31.2 L, RDW 13.8, Plt Count 189, MPV 9.8, Neut % (Auto) 74.1, Lymph % (Auto) 13.2, [place] % (Auto) 9.6 H, Eos % (Auto) 2.0, Baso % (Auto) 0.3, Neut # (Auto) 6.4, Lymph # (Auto) 1.1, [place] # (Auto) 0.8, Eos # (Auto) 0.2, Baso # (Auto) 0.0, Sodium 139, Potassium 3.8, Chloride 108 H, Carbon Dioxide 25, Anion Gap 9.8, BUN 15 D, Creatinine 0.60, Estimated Creat Clear 46, Estimated GFR 95, Est GFR ( Amer) 115, Glucose 113 H, Calcium 9.2, Total Bilirubin 0.4, AST 32, ALT 16, Alkaline Phosphatase 138 H, Total Protein 5.8 L, Albumin 3.4 L D, Globulin 2.4, Albumin/Globulin Ratio 1.4 I & O for Last 24 hours: Intake & Output 03/25/25 03/26/25 03/27/25 03/28/25 23:59 23:59 23:59 23:59 Intake Total 990 / 1230 480 / 480 Output Total 500 / 500 Balance 490 / 730 480 / 480 Weight 65.913 kg 65.487 kg 69.581 kg Constitutional Constitutional: no acute distress and cooperative *Routine HEENT Exam Head: Present normocephalic and atraumatic Eye: Present EOMI ENT: Present mucous membranes moist *Routine Neck Exam Neck: Present supple and full ROM; Absent JVD *Routine Respiratory Exam Respiratory: Present CTA bilaterally, normal respiratory effort, able to speak in complete sentences and symmetric chest movement; Absent wheezes or crackles *Routine Cardiovascular Exam Cardiovascular: Present RRR, Normal S1 and Normal S2; Absent murmur *Routine Abdominal Exam Abdominal: Present soft and normoactive bowel sounds; Absent tenderness or distended *Routine Extremities Exam Extremities: Present pulses intact and normal capillary refill; Absent edema *Routine Skin Exam Skin: Present intact, dry and wounds (Abrasions on bilateral elbows.); Absent erythema *Routine Neurological Exam Neurological: Present alert, oriented X3, vision grossly intact and hearing grossly intact Results Data Completed and Pending Labs on day of discharge: Labs from last 24 hours 03/28/25 06:01 WBC 8.6 RBC 5.23 Hgb 13.9 Hct 44.5 MCV 85.1 MCH 26.6 L MCHC 31.2 L RDW 13.8 Plt Count 189 MPV 9.8 Neut % (Auto) 74.1 Lymph % (Auto) 13.2 [place] % (Auto) 9.6 H Eos % (Auto) 2.0 Baso % (Auto) 0.3 Neut # (Auto) 6.4 Lymph # (Auto) 1.1 [place] # (Auto) 0.8 Eos # (Auto) 0.2 Baso # (Auto) 0.0 Sodium 139 Potassium 3.8 Chloride 108 H Carbon Dioxide 25 Anion Gap 9.8 BUN 15 D Creatinine 0.60 Estimated Creat Clear 46 Estimated GFR 95 Est GFR ( Amer) 115 Glucose 113 H Calcium 9.2 Total Bilirubin 0.4 AST 32 ALT 16 Alkaline Phosphatase 138 H Total Protein 5.8 L Albumin 3.4 L D Globulin 2.4 Albumin/Globulin Ratio 1.4 DS: Diagnosis Discharge Diagnosis (1) Pelvic hematoma: Status: Acute (2) Fracture of right inferior pubic ramus: Status: Acute Code(s): S32.591A - Other specified fracture of right pubis, initial encounter for closed fracture (3) Fracture of right superior pubic ramus: Status: Acute Code(s): S32.511A - Fracture of superior rim of right pubis, initial encounter for closed fracture (4) Dog bite of arm: Status: Acute Code(s): S41.159A - Open bite of unspecified upper arm, initial encounter; W54.0XXA - Bitten by dog, initial encounter (5) Hypertension: Status: Chronic Code(s): I10 - Essential (primary) hypertension (6) Depression: Status: Chronic Code(s): F32.A - Depression, unspecified Meds Home Medications and Allergies Home Medications ?Medication ?Instructions ?Recorded ?Confirmed ?Type aspirin 81 mg tablet,delayed 81 mg PO BID 03/26/25 History release atorvastatin 10 mg tablet 10 mg PO HS 03/26/25 5 History fluticasone propionate 50 1 spray intranasal BID 03/2603/26/25 History mcg/actuation nasal spray,suspension losartan 50 mg tablet 50 mg PO DAILY 03/26/25/02/23 History sertraline 50 mg tablet 50 mg PO BID 03/26/25 History amoxicillin 500 mg-potassium 1 tab PO TID 6 days #16 t abs 03/28/25 Rx clavulanate 125 mg tablet hydrocodone 5 mg-acetaminophen 325 1 - 2 tab PO Q4HP P RN Moderate to 03/28/25 Rx mg tablet Severe Pain (4-10) 3 days #2 7 tabs polyethylene glycol 3350 17 17 g PO DAILY #238 grams 0 03/28/25 Rx gram/dose oral powder (Miralax) sennosides 8.6 mg-docusate sodium 1 tab PO BID 30 days #60 tabs 03/28/25 Rx 50 mg tablet (Stimulant Laxative Plus) New Prescriptions to Start Prescriptions: hydrocodone-acetaminophen Stephanie Alanis amoxicillin-pot clavulanate Stephanie Alanis polyethylene glycol 3350 [Miralax] Stephanie Alanis sennosides-docusate sodium [Stimulant Laxative Plus] Stephanie Alanis Allergies Allergy/AdvReac Type Severity Reaction Status Date / Time No Known Allergies Allergy Verified 03/26/25 20:03 Discharge Plan Disposition Patient Disposition: Home Health Service Condition: Good Discharge Order Discharge Orders: Discharge Order (Routine); Ordered 03/28/25 Ordered By: Stephanie Alanis Follow up Plan Prescriptions/Medication Reconciliation: New hydrocodone-acetaminophen 5-325 mg Tablet 1 - 2 tab PO Q4HP PRN (Reason: Moderate to Severe Pain (4-10)) 3 Days Qty: 27 0RF sennosides-docusate sodium [Stimulant Laxative Plus] 8.6-50 mg Tablet 1 tab PO BID 30 Days Qty: 60 0RF amoxicillin-pot clavulanate 500-125 mg Tablet 1 tab PO TID 6 Days Qty: 16 0RF polyethylene glycol 3350 [Miralax] 17 gram/dose powder 17 g PO DAILY Qty: 238 0RF Continued losartan 50 mg tablet 50 mg PO DAILY Patient Comments: TAKE 1 TABLET BY MOUTH EVERY DAY atorvastatin 10 mg tablet 10 mg PO HS Patient Comments: TAKE 1 TABLET BY MOUTH EVERY DAY aspirin 81 mg tablet,delayed release (DR/EC) 81 mg PO BID Patient Comments: 1 TAB ORAL TWICE A DAY ,INSTR:DVT PROPHYLAXIS fluticasone propionate 50 mcg/actuation spray,suspension 1 spray INTRANASAL BID Patient Comments: SPRAY 1 SPRAY INTO EACH NOSTRIL TWICE A DAY sertraline 50 mg tablet 50 mg PO BID Patient Comments: TAKE 1 TABLET BY MOUTH IN THE MORNING AND 1 TABLET IN THE EVENING DAILY Other Ambulatory Orders: Home Medical Equipment (Routine) Location: None Selected Ordered By: Stephanie Alanis Home Medical Equipment (Routine) Location: None Selected Ordered By: Stephanie Alanis Problem Reconciliation Problems Reviewed?: Yes Patient Discharge Instructions ACTIVITY: Ambulate as tolerated and Up with assistance DIET: continue same diet Patient Instructions: DI for Pelvic Fracture, How to Prevent Falls Print Language: Bhutanese Providers Primary Care Provider: Provider,Referral Admit Provider: Juan Antonio Cruz Attending Provider: Juan Antonio Cruz
--- NOTE | 2025-03-29 09:59 | SW/DCPLANNER ---
Addendum entered by Shelley Ruvalcaba RN 03/31/25 11:43: Patient has been approved by insurance for SNF bed at [facility]. I spoke with Bren, patient's daughter today and plan is for Ms. Moreira to transfer there today. Addendum entered by Shelley Ruvalcaba RN 03/29/25 14:44: [facility] has started an auth, family aware. Иван also notified, and new order sent for SW to be added to services. Will continue to monitor. Addendum entered by Shelley Ruvalcaba RN 03/29/25 12:57: Called and spoke with patient's daughter. She is requesting for patient to be placed @ a SNF in [place] if possible. Patient is agreeable as well. I have sent referral to [facility] and to [facility]. CM will continue to work on placement. Original Note: Spoke with patient's daughter on the phone. Patient's daughter stated that her mom is doing good. Patient's daughter stated that she was able to get her mom's new medicine picked up from clinic pharmacy. Patient's daughter stated that the only concern she had was maybe discharging her too soon from the hospital. Patient's daughter stated that she has no other concerns or questions at this time. Jesse Jaramillo
== END 2025-03-28 14:40 | disposition home health service (06) ==
LOC: ER 23:16 → 2ND 23:27
PROVIDERS: Internal Medicine Adolescent Medicine; Admitting Provider Student in an Organized Health Care Education/Training Program; Emergency Provider Emergency Medicine; Visit Provider Student in an Organized Health Care Education/Training Program
DX: S32.591A Other specified fracture of right pubis, initial encounter for closed fracture (principal); S30.0XXA Contusion of lower back and pelvis, initial encounter; S32.511A Fracture of superior rim of right pubis, initial encounter for closed fracture; S41.159A Open bite of unspecified upper arm, initial encounter; F41.9 Anxiety disorder, unspecified; I10 Essential (primary) hypertension; F32.A Depression, unspecified; E04.1 Nontoxic single thyroid nodule; R91.1 Solitary pulmonary nodule; E78.5 Hyperlipidemia, unspecified; W54.0XXA Bitten by dog, initial encounter; W19.XXXA Unspecified fall, initial encounter; Z79.899 Other long term (current) drug therapy; Z23 Encounter for immunization; Z85.3 Personal history of malignant neoplasm of breast; Z85.828 Personal history of other malignant neoplasm of skin; Z79.82 Long term (current) use of aspirin
CPT/HCPCS: 36415; 70450; 72125; 72128; 72131; 72192; 73552; 73562; 80053; 85025; 85610; 85730; 90715; 96374; 96375; 97163; 97166; 99285; G0378; J0295; J1885; J2270; J2405